=== PATIENT | male | born 1965 | race Caucasian/White ===

== ENCOUNTER 2019-02-06 19:02 | Inpatient (IN) | payer SELFPAY ==
[2019-02-06] MEDS ORDERED: Lidocaine 1% w/Epinephrine 1:100K 20 ML VIAL ONE (19:20)
[2019-02-06] MEDS ORDERED: Adacel (T-DAP) 0.5 ML SYRINGE ONE (19:25)
[2019-02-06 19:29] LABS: #Eosinphils 0.1 thou/uL (0.0-0.7); #Lymphocytes 2.9 thou/uL (1.20-3.40); #Monocytes 0.5 thou/uL (0.11-0.59); #Neutrophils 5.8 thou/uL (1.40-6.50); %Basophils 0.5 % (0.0-1.0); %Eosinophils 0.6 % (0.0-10.0); %Lymphocytes 31.4 % (21.0-51.0); %Neutrophils 62.5 % (42.0-75.0); Hemoglobin 12.2 g/dL (14.0-18.0); Mean Corpuscular HGB CONC 34.2 g/dL (32.0-36.0); Mean Corpuscular Hemoglobin 31.7 pg (27.0-31.0); Mean Corpuscular Volume 92.6 fL (78.0-98.0); Platelet Count 238 thou/uL (130-400); RBC Distribution Width 11.6 % (11.5-14.5); Red Blood Cell (RBC) Count 3.84 mill/uL (4.70-6.10); White Blood Cell (WBC) Count 9.2 thou/uL (4.8-10.8)
[2019-02-06 19:35] LABS: INR-International Normal Ratio 1.1; Prothrombin Time 13.7 SEC (12.0-14.7)
[2019-02-06] MEDS ORDERED: Calcium Chloride 1 GM/10 ML Abboject SYRINGE ONE (19:35)
[2019-02-06 19:36] LABS: PTT 22.4 SEC (22.9-36.1)
[2019-02-06] MEDS ORDERED: Atropine Sulfate 1 mg/10 ml Syringe ONE (19:45)
[2019-02-06] MEDS ORDERED: Norepinephrine 8 MG/0.9% NS 250 ML ONE (19:45)
[2019-02-06 19:52] LABS: ALT (SGPT) 10 U/L (8-55); AST (SGOT) 14 U/L (5-34); Albumin 3.2 g/dL (3.5-5.0); Alkaline Phosphatase 55 U/L (40-110); Anion Gap 13 mmol/L (10-20); BUN (Urea Nitrogen) 20 mg/dL (8.4-25.7); Bilirubin, Total 0.6 mg/dL (0.2-1.2); Calc. Creatinine Clearance 0 mL/min (70-130); Calcium 8.2 mg/dL (7.8-10.44); Carbon Dioxide 21 mmol/L (22-29); Chloride 105 mmol/L (98-107); Estimated GFR-MDRD 58; Globulin 2.6 g/dL (2.4-3.5); Glucose 99 mg/dL (70-105); Potassium 4.1 mmol/L (3.5-5.1); Protein, Total 5.8 g/dL (6.0-8.3); Sodium 135 mmol/L (136-145)
[2019-02-06 19:52] LABS: Acetaminophen Less than 6.0 mcg/mL (10.0-30.0); Alcohol Less than 10 mg/dL (Less than 10); Salicylate Less than 8.0 mg/dL (15.0-30.0)
[2019-02-06 20:36] LABS: Bilirubin Negative (Negative); Blood, Urine Negative (Negative); Clarity Clear (Clear); Glucose, Urine (Dipstick) Normal (Negative); Leukocyte Negative Leu/uL (Negative); Nitrite Negative (Negative); Protein, Urine (Dipstick) Negative (Neg-Trace); Urobilinogen Normal mg/dL (Less than 2)
[2019-02-06 20:45] LABS: Amphetamine Not Detected (NotDetected); Cocaine Metabolite Screen Not Detected (NotDetected); Medtox Reader # READER 1; Methamphetamine Not Detected (NotDetected); Opiate Screen Detected (NotDetected); Phencyclidine (PCP) Not Detected (NotDetected); THC/Cannabinoid Screen Detected (NotDetected)
[2019-02-06] MEDS ORDERED: HUMULIN R IVPB SCH (20:45)
[2019-02-06] MEDS ORDERED: SODIUM CHLORIDE 0.9% IVPB SCH (20:45)
[2019-02-06 20:46] LABS: Barbiturates Screen Not Detected (NotDetected); Benzodiazepine Screen Detected (NotDetected); Medtox Control Line Valid? VALID (VALID); Methadone Not Detected (NotDetected); Oxycodone Screen Not Detected (NotDetected); Tricyclic Screen Detected (NotDetected)
[2019-02-06] MEDS ORDERED: STERILE WATER IV SCH (21:00)
[2019-02-06] MEDS ORDERED: DEXTROSE IV SCH (21:00)
[2019-02-06] MEDS ORDERED: WATER IV SCH (21:00)
--- NOTE | 2019-02-06 21:26 | RAD ---
2 views left forearm: 02/06/2019 COMPARISON: None HISTORY: Injury FINDINGS: Detailed assessment is limited as the patient is imaged in a cast. Cutaneous colleen are no raj along the volar aspect of the forearm. No acute fracture or dislocation. IMPRESSION: No displaced fracture or dislocation seen.
[2019-02-06] MEDS ORDERED: Fentanyl 100 MCG/2 ML VIAL ONE (22:21)
--- NOTE | 2019-02-06 22:41 | RAD ---
SUPINE FRONTAL CHEST RADIOGRAPH: 02/06/19 COMPARISON: None. HISTORY: Central line placement. FINDINGS: Supine imaging limits assessment for pneumothorax and pleural fluid. No focal consolidation. There is a right sided vascular catheter with distal tip overlying the expected location of the SVC. IMPRESSION: Portable frontal chest radiograph as above. POS: MARILYN
[2019-02-07] MEDS ORDERED: Norepinephrine 8 MG/0.9% NS 250 ML IVPB SCH (00:15)
[2019-02-07 00:34] VITALS: BMI 31.5
[2019-02-07] MEDS: Dextrose 5 %-0.45 % NaCl 1,000 ML IV SCH ×2 (01:20→09:10)
--- NOTE | 2019-02-07 02:24 | PDOC.FPRHP ---
- History of Present Illness Chief Complaint: Suicide Attempt History of Present Illness: Pt is a 53 yo male with PMH significant for HTN, depression who presents to the emergency department with an attempted suicide. He initially took multiple tablets of lisinopril 30 mg and states he also took metoprolol. He was hypotensive on admission to the emergency department. On arrival he also had a L forearm laceration including tendon. Laceration was repaired in the emergency and Dr. Vera was consulted. He was initally given atropine, calcium and glucagon with good response in BP' s. ED consulted poison control who recommended high dose levophed, 1 mg/kg at 20-30 mcg/min and insulin 1-10 U/kg/hr with euglycemia protocol with accuchecks and BMP q15 min if his pressures began to drop again. Central line was placed. Did not take extensive history as to circumstances surrounding attempted suicide. He does have history of recently moving to the area from [place] to help take care of his mother. Difficult to obtain information surrounding event. ED Course: as above - Allergies/Adverse Reactions Allergies Allergy/AdvReac Type Severity Reaction Status Date / Time No Known Allergies Allergy Unverified 02/06/19 20:12 - Home Medications Medication Instructions Recorded Confirmed Type ALPRAZolam [Xanax] 2 mg PO BID 02/07/19 02/07/19 History Amlodipine [Norvasc] 10 mg PO DAILY 02/07/19 02/07/19 History Lisinopril 40 mg PO DAILY 02/07/19 02/07/19 History Omeprazole 10 mg PO DAILY 02/07/19 02/07/19 History QUEtiapine Fumarate [SEROquel] 100 mg PO HS 02/07/19 02/07/19 History Zolpidem Tartrate [Ambien] 10 mg PO HS 02/07/19 02/07/19 History - History PMHx: HTN, Depression PSHx: did not obtain FHx: did not obtain Social: recently to the area from [place] to take care of mother - Review of Systems General: denies: fever/chills, weight/appetite/sleep changes Respiratory: denies: cough, congestion Cardiovascular: denies: chest pain, palpitation Gastrointestinal: denies: nausea, vomiting, diarrhea Skin: denies: rashes, lesions Psychological: reports: depression. denies: anxiety - Vital signs BP: 125/84 HR: RR: 73 Tmax: 98.2 Pox: 96% on RA Wt: 97.5 kg - Physical Exam Constitutional: NAD, awake, alert and oriented Heart: RRR, normal S1/S2 Lungs: CTAB, no respiratory distress, no wheezing Abdomen: soft, non-tender, bowel sounds present Musculoskeletal: ROM grossly normal -Musculoskeletal: L forearm wrapped Neurological: no focal deficit, CN II-XII intact Skin: no rash/lesions, capillary refill <2 seconds -Psychiatric: Poor insight and judgment FMR H&P: Results - Labs Result Diagrams: 02/07/19 06:27 02/07/19 06:27 Lab results: WBC 9.2 thou/uL (4.8-10.8) 02/06/19 19:13 Hgb 12.2 g/dL (14.0-18.0) L 02/06/19 19:13 Hct 35.5 % (42.0-52.0) L 02/06/19 19:13 MCV 92.6 fL (78.0-98.0) 02/06/19 19:13 Plt Count 238 thou/uL (130-400) 02/06/19 19:13 Neutrophils % 62.5 % (42.0-75.0) 02/06/19 19:13 Sodium 135 mmol/L (136-145) L 02/06/19 19:13 Potassium 4.1 mmol/L (3.5-5.1) 02/06/19 19:13 Chloride 105 mmol/L (98-107) 02/06/19 19:13 Carbon Dioxide 21 mmol/L (22-29) L 02/06/19 19:13 BUN 20 mg/dL (8.4-25.7) 02/06/19 19:13 Creatinine 1.30 mg/dL (0.7-1.3) 02/06/19 19:13 Glucose 99 mg/dL (70-105) 02/06/19 19:13 Lactic Acid 1.7 mmol/L (0.5-2.2) 02/06/19 19:19 Calcium 8.2 mg/dL (7.8-10.44) 02/06/19 19:13 Total Bilirubin 0.6 mg/dL (0.2-1.2) 02/06/19 19:13 AST 14 U/L (5-34) 02/06/19 19:13 ALT 10 U/L (8-55) 02/06/19 19:13 Alkaline Phosphatase 55 U/L (40-110) 02/06/19 19:13 Serum Total Protein 5.8 g/dL (6.0-8.3) L 02/06/19 19:13 Albumin 3.2 g/dL (3.5-5.0) L 02/06/19 19:13 Urine Ketones Negative mg/dL (Negative) 02/06/19 20:22 Urine Blood Negative (Negative) 02/06/19 20:22 Urine Nitrite Negative (Negative) 02/06/19 20:22 Ur Leukocyte Esterase Negative Dex/uL (Negative) 02/06/19 20:22 FMR H&P: A/P - Problem List (1) Suicide and self-inflicted injury Current Visit: Yes Status: Acute Code(s): X83.8XXA - INTENTIONAL SELF-HARM BY OTHER SPECIFIED MEANS, INIT ENCNTR (2) Hypertension Current Visit: Yes Status: Acute Code(s): I10 - ESSENTIAL (PRIMARY) HYPERTENSION (3) Depression Current Visit: Yes Status: Acute Code(s): F32.9 - MAJOR DEPRESSIVE DISORDER , SINGLE EPISODE, UNSPECIFIED - Plan Pt is a 53 yo male here for a suicide attempt # Suicide Attempt 2/2 Lisinopril Overdose and L arm Laceration - Given atropine, calcium, glucagon. Poison control recommended high dose levophed, 1 mg/kg at 20-30 mcg/min and insulin 1-10 U/kg/hr with euglycemia protocol with accuchecks and BMP q15 min if pressures begin to drop. - Dr. Vera, ortho, consulted from ED and will see pt tomorrow for laceration involving tendon - Case management consulted for SI attempt - Fluids to help flush kidneys, medications - admit to CCU for close BP watch - TDaP, Cefazolin given in ED # HTN - hold home meds # Drug Abuse Positive drug screen Fluids: NS 140 mls/hr Diet: NPO for surgery VTE: Lovenox Code: Full Dispo: > 2 day stay FMR H&P: Upper Level - Plan Date/Time: 02/07/19 0224 Cheng Nelson MD, have evaluated this patient and agree with findings/plan as outlined by hr internship resident. Pertinent changes/additions are listed here. Alfonso Thomas is a 53 year old M with a PMH of HTN, DAX, MDD who was brought to the ED after suicide attempt. Pt states that his mother broke his heart over [place] and he developed suicidal thoughts. 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 EMS found 9 cm laceration to left forearm with tendon involvement. He was given 1 L NS and 100 mcg fentanyl in route to ED. In the ED he was drowsy, hypotensive in the 80s and bradycardic as low as 47. He was given atropine and calcium in the ED which improved HR and BP. Poison control was called and recommended close monitoring in ICU and gave recommendations for treatment of hypotension and bradycardia. Recommended high dose levophed, 1 mg/kg at 20-30 mcg/min and insulin 1-10 U/kg/hr with euglycemia protocol with accuchecks and BMP q15 min. Since getting atropine and calcium as well as IVFs in ED, pts BP and HR remained stable, not requiring pressors or insulin. Dr. Vera was consulted from the ED and agreed to see pt in AM. R IJ placed in ED along and lac was repaired. Tdap vaccine given. Labs were sig for UDS positive for THC, Opiates, TCAs and Benzos. UA neg, Serum drug screen neg. Lactic acid 1.7. TSH 0.5. Patient admitted to CCU for lisinopril OD. Following Poison control recs with close monitoring of BP and HR. Will continue fentanyl for pain. Dr. Vera consulted in ED, appreciate recs. Anticipate hospital stay >48 hrs and will get MHMR involved once patient is stable. Please see hr internship note above for full H&P, which I have reviewed and agree with. Addendum - Attending - Attending Attestation Date/Time: 02/06/19 2200 I personally evaluated the patient and discussed the management with Dr. Mcdaniel /Johnnie. I agree with the History, Examination, Assessment and Plan documented above with any addition or exceptions noted below. See my dictated H&P. Document #[id number]. Patient seen at approximately 2200 on day of admission.
[2019-02-07] MEDS: Fentanyl 100 MCG/2 ML VIAL SLOW IVP PRN ×9 (02:47→23:03)
[2019-02-07] MEDS: Sodium Chloride 0.9% 1,000 ML IV SCH ×4 (06:14→20:48)
[2019-02-07 06:36] LABS: #Eosinphils 0.1 thou/uL (0.0-0.7); #Lymphocytes 1.5 thou/uL (1.20-3.40); #Monocytes 0.5 thou/uL (0.11-0.59); #Neutrophils 7.7 thou/uL (1.40-6.50); %Basophils 0.3 % (0.0-1.0); %Eosinophils 0.6 % (0.0-10.0); %Lymphocytes 15.6 % (21.0-51.0); %Monocytes 4.6 % (0.0-10.0); %Neutrophils 78.9 % (42.0-75.0); Hemoglobin 13.2 g/dL (14.0-18.0); Mean Corpuscular HGB CONC 34.1 g/dL (32.0-36.0); Mean Corpuscular Hemoglobin 30.9 pg (27.0-31.0); Mean Corpuscular Volume 90.8 fL (78.0-98.0); Mean Platelet Volume 6.9 fL (7.4-10.4); Platelet Count 215 thou/uL (130-400); RBC Distribution Width 12.2 % (11.5-14.5); Red Blood Cell (RBC) Count 4.27 mill/uL (4.70-6.10); White Blood Cell (WBC) Count 9.8 thou/uL (4.8-10.8)
[2019-02-07 06:56] LABS: Anion Gap 9 mmol/L (10-20); BUN (Urea Nitrogen) 14 mg/dL (8.4-25.7); Calc. Creatinine Clearance 112 mL/min (70-130); Calcium 8.4 mg/dL (7.8-10.44); Carbon Dioxide 24 mmol/L (22-29); Chloride 107 mmol/L (98-107); Estimated GFR-MDRD 72; Glucose 122 mg/dL (70-105); Potassium 3.9 mmol/L (3.5-5.1); Sodium 136 mmol/L (136-145)
[2019-02-07] MEDS: HYDROcodone/Acetaminophen 5/325 mg Tablet PO PRN ×3 (07:45→20:20)
--- NOTE | 2019-02-07 11:44 | PDOC.FM ---
- Subjective Subjective: 53 yo M admitted over night for suicide attempt by overdose on ACEI and metoprolol. Since admission he states that he feels well and is no longer suicidal. He has no hx of previous attempts or depression. He complains of L arm pain from his self inflicted laceration. Since admission he has no new complaints. No concerns from nursing. He denies all other symptom on ROS> - Objective MAR Reviewed: Yes Vital Signs & Weight: Vital Signs (12 hours) Temp Pulse Ox 02/07/19 08:00 98.7 F 93 L 02/07/19 04:00 98.5 F 02/07/19 01:00 98.4 F 02/07/19 00:30 97 Weight Admit Weight 99.7 kg Weight 99.7 kg Most Recent Monitor Data Heart Rate from ECG 89 NIBP 146/105 NIBP BP-Mean 118 Respiration from ECG 20 SpO2 96 I&O: 02/06/19 02/07/19 02/08/19 06:59 06:59 06:59 Intake Total 779 50 Output Total 1460 1055 Balance -681 -1005 Result Diagrams: 02/07/19 06:27 02/07/19 06:27 Phys Exam - Physical Examination Constitutional: NAD HEENT: moist MMs Respiratory: clear to auscultation bilateral Cardiovascular: RRR, no significant murmur Gastrointestinal: no distention, positive bowel sounds Musculoskeletal: no edema L forearm dressed. Fingers are neurovascularly intact Neurological: non-focal, moves all 4 limbs Psychiatric: A&O x 3 Deviation from normal: No curent SI Dx/Plan (1) Suicide attempt by beta isidro overdose Code(s): T44.7X2A - POISONING BY BETA-ADRENOCPT ANTAGONISTS, SELF-HARM, INIT Status: Acute (2) Depression Code(s): F32.9 - MAJOR DEPRESSIVE DISORDER, SINGLE EPISODE, UNSPECIFIED Status : Acute (3) Hypertension Code(s): I10 - ESSENTIAL (PRIMARY) HYPERTENSION Status: Acute (4) Suicide and self-inflicted injury Code(s): X83.8XXA - INTENTIONAL SELF-HARM BY OTHER SPECIFIED MEANS, INIT ENCNTR Status: Acute - Plan Plan: 1. Beta isidro overdose - BP is stable, has never required pressers. - Normal HR - will follow up with poison control for total obs duration, would expect transfer to [facility] from ICU later today. 2. Suicide attempt - not currently suicidal. When medically cleared will call [facility] for evaluation 3. HTN - currently holding all meds 4. Arm laceration - clean and dressed. No sign of infection. Ortho consulted, they do not plan to operate at this time. Dispo Pt is stable and doing well. Would expect dc in the next 1-2 days.
--- NOTE | 2019-02-07 11:59 | CON ---
DATE OF CONSULTATION: 02/07/2019 CONSULTING PHYSICIAN: [facility]. REASON FOR CONSULTATION: ICU management. HISTORY OF PRESENT ILLNESS: This is a 53-year-old male, who apparently took multiple tablets of lisinopril and metoprolol. He presented to the ER, slightly hypotensive with heart rate in the 40s to 50s. This quickly reversed after being given atropine, calcium, and glucagon. He did not require initiation of Levophed. He received several liters of IV fluids. His blood pressure and pulse are back to normal and he has no complaints. Apparently, he attempted to cut his arm and now has a dressing over the left wrist area and is pending Orthopedic evaluation. PAST MEDICAL HISTORY: 1. Chronic insomnia. 2. Depression. 3. Hypertension. PAST SURGICAL HISTORY: Negative. FAMILY MEDICAL HISTORY: Unremarkable. SOCIAL HISTORY: Does not nonsmoker. Does not drink alcohol. He does use CBD oral. MEDICATIONS: Prior to admission; 1. Xanax. 2. Norvasc. 3. Lisinopril. 4. Omeprazole. 5. Seroquel. 6. Ambien. Apparently, the metoprolol belonged to either his mother or his grandmother. ALLERGIES: NONE. REVIEW OF SYSTEMS: Twelve-point review of systems is otherwise negative. PHYSICAL EXAMINATION: VITAL SIGNS: Temperature 98.7, pulse 80, blood pressure 140/89, respiratory rate 12, and O2 saturation 93%. He is awake and alert, in no distress. HEENT: Unremarkable. NECK: No adenopathy or JVD. LUNGS: Clear. CARDIAC: S1 and S2 regular without murmur. ABDOMEN: Soft and nontender to palpation. EXTREMITIES: No clubbing or cyanosis. He has a bandage over his left wrist. LABORATORY DATA: Sodium 136, potassium 3.9, chloride 107, CO2 of 24, BUN 14, creatinine 1.1, and glucose 122. INR 1.1. White blood cell count 9.8, hematocrit 38.7, and platelet count 215. Sodium 136, potassium 3.9, BUN 14, creatinine 1.1, and glucose 122. ASSESSMENT: 1. Transient hypotension and bradycardia from ingestion of beta-blockers. I doubt he ingested any significant quantity of lisinopril given what we are seeing on his labs. 2. Attempted suicide with injury to his left arm. PLAN: 1. He will be evaluated by Orthopedics. 2. I think he is out of the young from the antihypertensive overdose and can likely be moved to the floor as long as he has a sitter. No further recommendations. Pulmonary will sign off. Job ID: [id number]
[2019-02-07] MEDS ORDERED: Melatonin 3 MG TAB PO PRN (20:50)
--- NOTE | 2019-02-07 21:46 | CON ---
DATE OF CONSULTATION: 02/07/2019 HISTORY OF PRESENT ILLNESS: The is a 53-year-old right-handed male who reportedly has history of depression and reportedly took many lisinopril and metoprolol, and then took a razor blade and performed a longitudinal laceration over the volar aspect of the left forearm. I was able to see the picture of the forearm and it appeared to be superficial. The palmaris longus tendon was easily visible, but the underlying muscle did not appear to be damaged nor any of the tendons in the wrist. The patient reports no numbness in his left hand and he is able to flex and extend his hand. The emergency room doctor this morning, cleaned up the wound and did a primary closure. PHYSICAL EXAMINATION: The patient is in a splint. The wound has been well approximated. He has mild swelling in the forearm and hand. The patient is able to flex and extend all of the digits in his left hand. He has good adduction and abduction. He has normal sensation in the entire left hand. Good peripheral pulses. IMPRESSION: Superficial longitudinal laceration on the volar aspect of the left forearm. PLAN: No additional surgery is needed. The emergency room doctor did an excellent job on cleaning and repairing the laceration. The laceration just needs to heal and the colleen should be removed in approximately 10 days. No further surgery is needed on his left forearm at this time. Job ID: [id number]
[2019-02-08] MEDS: Fentanyl 100 MCG/2 ML VIAL SLOW IVP PRN ×10 (01:05→22:37)
[2019-02-08] MEDS: Sodium Chloride 0.9% 1,000 ML IV SCH ×6 (02:00→20:46)
[2019-02-08] MEDS: HYDROcodone/Acetaminophen 5/325 mg Tablet PO PRN ×3 (02:28→16:58)
[2019-02-08 06:18] LABS: #Eosinphils 0.1 thou/uL (0.0-0.7); #Lymphocytes 2.2 thou/uL (1.20-3.40); #Monocytes 0.5 thou/uL (0.11-0.59); #Neutrophils 3.6 thou/uL (1.40-6.50); %Basophils 0.5 % (0.0-1.0); %Eosinophils 1.2 % (0.0-10.0); %Monocytes 7.7 % (0.0-10.0); %Neutrophils 56.6 % (42.0-75.0); Hemoglobin 12.6 g/dL (14.0-18.0); Mean Corpuscular HGB CONC 33.8 g/dL (32.0-36.0); Mean Corpuscular Hemoglobin 31.8 pg (27.0-31.0); Mean Corpuscular Volume 94.1 fL (78.0-98.0); Mean Platelet Volume 7.4 fL (7.4-10.4); Platelet Count 212 thou/uL (130-400); Red Blood Cell (RBC) Count 3.97 mill/uL (4.70-6.10); White Blood Cell (WBC) Count 6.3 thou/uL (4.8-10.8)
--- NOTE | 2019-02-08 06:18 | PDOC.FM ---
- Subjective Subjective: BP's increasing. Pt states he is not sleeping well. Denies current suicidal thoughts or ideations. - Objective MAR Reviewed: Yes Vital Signs & Weight: Vital Signs (12 hours) Temp Pulse Resp BP Pulse Ox 02/08/19 04:12 98.4 F 76 20 157/90 H 93 L 02/08/19 00:21 98.7 F 80 16 163/91 H 96 02/07/19 20:00 96 02/07/19 19:02 99.2 F 80 18 159/95 H 96 Weight Admit Weight 99.7 kg Weight 99.7 kg Most Recent Monitor Data Heart Rate from ECG 81 NIBP 135/88 NIBP BP-Mean 103 Respiration from ECG 9 SpO2 96 I&O: 02/06/19 02/07/19 02/08/19 06:59 06:59 06:59 Intake Total 779 2079 Output Total 1460 2180 Balance -681 -101 Result Diagrams: 02/08/19 05:53 02/08/19 05:53 Phys Exam - Physical Examination Constitutional: NAD HEENT: moist MMs, sclera anicteric Neck: no JVD, full ROM Respiratory: no wheezing, no rales, no rhonchi, clear to auscultation bilateral Cardiovascular: RRR, no significant murmur, no rub Gastrointestinal: soft, non-tender, no distention, positive bowel sounds Musculoskeletal: no edema, pulses present Left forearm laceration, dressing clean and dry. neurovasculally intact. Neurological: non-focal, moves all 4 limbs Psychiatric: A&O x 3 Skin: no rash, normal turgor, cap refill <2 seconds Dx/Plan (1) Suicide attempt by beta isidro overdose Code(s): T44.7X2A - POISONING BY BETA-ADRENOCPT ANTAGONISTS, SELF-HARM, INIT Status: Acute (2) Suicide and self-inflicted injury Code(s): X83.8XXA - INTENTIONAL SELF-HARM BY OTHER SPECIFIED MEANS, INIT ENCNTR Status: Acute (3) Depression Code(s): F32.9 - MAJOR DEPRESSIVE DISORDER, SINGLE EPISODE, UNSPECIFIED Status : Chronic (4) Hypertension Code(s): I10 - ESSENTIAL (PRIMARY) HYPERTENSION Status: Chronic - Plan Plan: 1. Beta isidro overdose - BP is stable, has never required pressers. - Normal HR - will follow up with poison control for total obs duration, transfer to medical. - Pt's never became hypotensive. Pressures are elevated. restarted home BP meds 02/08. 2. Suicide attempt - not currently suicidal. Cleared Medically 02/07. - [facility] recommending pt be placed in inpatient Psych facility. Awaiting bed placement. 3. HTN - Restarted home BP medication 02/08. - Norvasc and lisinopril. - vitals Q4H. 4. Arm laceration - clean and dressed. No sign of infection. Ortho consulted, they do not plan to operate at this time. Dispo Pt is stable and doing well. D/C to inpatient psych facility.
[2019-02-08 06:33] LABS: Anion Gap 11 mmol/L (10-20); BUN (Urea Nitrogen) 7 mg/dL (8.4-25.7); Calc. Creatinine Clearance 135 mL/min (70-130); Calcium 8.1 mg/dL (7.8-10.44); Carbon Dioxide 25 mmol/L (22-29); Chloride 109 mmol/L (98-107); Estimated GFR-MDRD 89; Glucose 104 mg/dL (70-105); Potassium 3.7 mmol/L (3.5-5.1); Sodium 141 mmol/L (136-145)
[2019-02-08] MEDS: Amlodipine 10 MG TAB PO SCH (08:13)
[2019-02-08] MEDS: Lisinopril 20 MG TAB PO SCH (08:16)
[2019-02-08] MEDS: Enoxaparin Sodium 40 MG/0.4 ML SYRINGE SC SCH (08:16)
[2019-02-08] MEDS: hydrOXYzine 25 MG TAB PO PRN (10:28)
[2019-02-08] MEDS ORDERED: Pepto Bismol Chew TAB PO SCH (13:00)
[2019-02-08] MEDS ORDERED: Oxazepam 10 MG CAP PO SCH (13:00)
[2019-02-08] MEDS: Oxazepam 10 MG CAP PO SCH (20:47)
[2019-02-09] MEDS: HYDROcodone/Acetaminophen 5/325 mg Tablet PO PRN ×4 (01:11→21:54)
[2019-02-09] MEDS: Fentanyl 100 MCG/2 ML VIAL SLOW IVP PRN ×7 (02:34→20:54)
[2019-02-09] MEDS: Sodium Chloride 0.9% 1,000 ML IV SCH ×4 (04:43→10:05)
[2019-02-09 05:51] LABS: #Basophils 0.1 thou/uL (0.0-0.2); #Eosinphils 0.1 thou/uL (0.0-0.7); #Lymphocytes 2.2 thou/uL (1.20-3.40); #Monocytes 0.4 thou/uL (0.11-0.59); #Neutrophils 3.2 thou/uL (1.40-6.50); %Basophils 0.8 % (0.0-1.0); %Lymphocytes 36.4 % (21.0-51.0); %Monocytes 6.9 % (0.0-10.0); %Neutrophils 53.9 % (42.0-75.0); Hemoglobin 10.7 g/dL (14.0-18.0); Mean Corpuscular Hemoglobin 31.3 pg (27.0-31.0); Mean Corpuscular Volume 92.1 fL (78.0-98.0); Platelet Count 212 thou/uL (130-400); RBC Distribution Width 11.6 % (11.5-14.5)
[2019-02-09 06:09] LABS: Anion Gap 8 mmol/L (10-20); BUN (Urea Nitrogen) 7 mg/dL (8.4-25.7); Calc. Creatinine Clearance 152 mL/min (70-130); Calcium 7.6 mg/dL (7.8-10.44); Carbon Dioxide 27 mmol/L (22-29); Chloride 111 mmol/L (98-107); Estimated GFR-MDRD Greater than 90; Glucose 96 mg/dL (70-105); Potassium 3.5 mmol/L (3.5-5.1); Sodium 142 mmol/L (136-145)
--- NOTE | 2019-02-09 06:40 | PDOC.FM ---
- Subjective Subjective: Pt asleep upon entry to room. Overnight sitter states he had been asleep finally for about 2.5 hours. Pt had been having trouble falling asleep. Awaiting inpatient psych bed. BP's improved since restarting medications. - Objective MAR Reviewed: Yes Vital Signs & Weight: Vital Signs (12 hours) Temp Pulse Resp BP Pulse Ox 02/09/19 01:00 98.2 F 77 20 154/97 H 96 02/08/19 20:00 95 02/08/19 19:30 98.5 F 77 18 149/89 H 95 Weight Admit Weight 99.7 kg Weight 99.7 kg Most Recent Monitor Data Heart Rate from ECG 81 NIBP 135/88 NIBP BP-Mean 103 Respiration from ECG 9 SpO2 96 I&O: 02/07/19 02/08/19 02/09/19 06:59 06:59 06:59 Intake Total 779 2079 1900 Output Total 1460 2180 Balance -681 -101 1900 Result Diagrams: 02/09/19 05:21 02/09/19 05:21 Phys Exam - Physical Examination Constitutional: NAD Respiratory: no wheezing, no rales, no rhonchi, clear to auscultation bilateral Cardiovascular: RRR, no significant murmur, no rub Gastrointestinal: soft, no distention, positive bowel sounds Musculoskeletal: no edema, pulses present Skin: no rash, normal turgor, cap refill <2 seconds Dx/Plan (1) Suicide attempt by beta isidro overdose Code(s): T44.7X2A - POISONING BY BETA-ADRENOCPT ANTAGONISTS, SELF-HARM, INIT Status: Acute (2) Suicide and self-inflicted injury Code(s): X83.8XXA - INTENTIONAL SELF-HARM BY OTHER SPECIFIED MEANS, INIT ENCNTR Status: Acute (3) Depression Code(s): F32.9 - MAJOR DEPRESSIVE DISORDER, SINGLE EPISODE, UNSPECIFIED Status : Chronic (4) Hypertension Code(s): I10 - ESSENTIAL (PRIMARY) HYPERTENSION Status: Chronic - Plan Plan: 1. Beta isidro overdose - BP is stable, has never required pressers. - Normal HR - will follow up with poison control for total obs duration, transfer to medical. - Pt's never became hypotensive. Pressures are elevated. restarted home BP meds 02/08. 2. Suicide attempt - not currently suicidal. Cleared Medically 02/07. - [facility] recommending pt be placed in inpatient Psych facility. Awaiting bed placement. 3. HTN - Restarted home BP medication 02/08. - Norvasc and lisinopril. - vitals Q4H. 4. Arm laceration - clean and dressed. No sign of infection. Ortho consulted, they do not plan to operate at this time. Dispo Pt is stable and doing well. D/C to inpatient psych facility.
[2019-02-09 09:28] LABS: Bicarbonate (HCO3v) 5.7 mmol/L (22.0-28.0); CO2 Tension (PvCO2) 13.3 mmHg (40.0-50.0)
[2019-02-09 09:29] LABS: Base Excess-Venous -20.3 mmol/L (-2.0 to 3.0); Calcium, Ionized 0.34 mmol/L (See Comments:); Chloride 129 mmol/L (98-107); Sodium 154 mmol/L (138-145); T. Carbon Dioxide 6.1 mmol/L (22.0-28.0); vO2 Saturation-calc 99.5 % (60.0-85.0)
[2019-02-09] MEDS: Amlodipine 10 MG TAB PO SCH (09:58)
[2019-02-09] MEDS: Lisinopril 20 MG TAB PO SCH (09:59)
[2019-02-09] MEDS: Enoxaparin Sodium 40 MG/0.4 ML SYRINGE SC SCH (09:59)
[2019-02-09] MEDS: Oxazepam 10 MG CAP PO SCH ×2 (10:00→20:52)
--- NOTE | 2019-02-09 11:54 | PRG ---
DATE OF SERVICE: I have discussed the case and read the note of Dr. Debbie Flores and agree with her assessment and plan. Mr. Thomas is a 53-year-old man, who presented to the ER after an attempted suicide. He took multiple tablets of lisinopril and metoprolol. He also had a large laceration of his left forearm that was self-inflicted. He was initially admitted to the MICU, but never became hypotensive. He was subsequently transferred to the regular floor and [facility] has been consulted. They have recommended inpatient psychiatric care in [place] and this is currently being arranged. Clinically, the patient is now stable. His labs; white count was 9200, hemoglobin 12.2, hematocrit 35.5. Chemistries: Sodium 135; potassium 4.1; chloride 105; bicarb initially 21, elizabeth to 25; BUN 20; creatinine 1.30. As stated, clinically Mr. Thomas is now stable and we are awaiting movement to [facility]. Job ID: [id number]
[2019-02-09] MEDS: hydrOXYzine 25 MG TAB PO PRN (21:54)
[2019-02-10] MEDS: Fentanyl 100 MCG/2 ML VIAL SLOW IVP PRN ×3 (00:09→08:56)
[2019-02-10] MEDS: HYDROcodone/Acetaminophen 5/325 mg Tablet PO PRN ×3 (04:28→20:34)
[2019-02-10 05:49] LABS: #Basophils 0.1 thou/uL (0.0-0.2); #Eosinphils 0.1 thou/uL (0.0-0.7); #Lymphocytes 3.4 thou/uL (1.20-3.40); #Monocytes 0.9 thou/uL (0.11-0.59); #Neutrophils 5.5 thou/uL (1.40-6.50); %Eosinophils 1.1 % (0.0-10.0); %Lymphocytes 33.9 % (21.0-51.0); %Monocytes 8.6 % (0.0-10.0); %Neutrophils 55.4 % (42.0-75.0); Hemoglobin 13.2 g/dL (14.0-18.0); Mean Corpuscular HGB CONC 31.8 g/dL (32.0-36.0); Mean Corpuscular Hemoglobin 29.5 pg (27.0-31.0); Mean Corpuscular Volume 92.6 fL (78.0-98.0); Mean Platelet Volume 6.8 fL (7.4-10.4); Platelet Count 281 thou/uL (130-400); RBC Distribution Width 11.9 % (11.5-14.5); Red Blood Cell (RBC) Count 4.47 mill/uL (4.70-6.10)
[2019-02-10 05:53] LABS: Anion Gap 10 mmol/L (10-20); BUN (Urea Nitrogen) 10 mg/dL (8.4-25.7); Calc. Creatinine Clearance 125 mL/min (70-130); Calcium 8.7 mg/dL (7.8-10.44); Carbon Dioxide 29 mmol/L (22-29); Chloride 106 mmol/L (98-107); Estimated GFR-MDRD 82; Glucose 101 mg/dL (70-105); Potassium 3.8 mmol/L (3.5-5.1); Sodium 141 mmol/L (136-145)
--- NOTE | 2019-02-10 06:38 | PDOC.FM ---
- Subjective Subjective: Pt c/o pain in LUE over his site from incision to forearm. Pt awaiting bed for inpatient psych facility. No acute overnight events. States he has trouble falling asleep. - Objective MAR Reviewed: Yes Vital Signs & Weight: Vital Signs (12 hours) Temp Pulse Resp BP BP Pulse Ox 02/10/19 04:00 97.6 F 71 18 157/95 H 157/91 H 98 02/09/19 18:57 98.2 F 73 18 137/97 H 96 Weight Admit Weight 99.7 kg Weight 99.7 kg Most Recent Monitor Data Heart Rate from ECG 81 NIBP 135/88 NIBP BP-Mean 103 Respiration from ECG 9 SpO2 96 I&O: 02/08/19 02/09/19 02/10/19 06:59 06:59 06:59 Intake Total 2079 1900 1400 Output Total 2180 900 Balance -101 1900 500 Result Diagrams: 02/10/19 05:25 02/10/19 05:25 Phys Exam - Physical Examination Constitutional: NAD HEENT: moist MMs, sclera anicteric Neck: no JVD, full ROM Respiratory: no wheezing, no rales, no rhonchi, clear to auscultation bilateral Cardiovascular: RRR, no significant murmur, no rub Gastrointestinal: soft, non-tender, no distention, positive bowel sounds Musculoskeletal: no edema, pulses present LUE forearm bandage clean and dry. neurovascularlly intact LUE. Neurological: non-focal, normal sensation, moves all 4 limbs Psychiatric: A&O x 3 Skin: no rash, normal turgor, cap refill <2 seconds Dx/Plan (1) Suicide attempt by beta isidro overdose Code(s): T44.7X2A - POISONING BY BETA-ADRENOCPT ANTAGONISTS, SELF-HARM, INIT Status: Acute (2) Suicide and self-inflicted injury Code(s): X83.8XXA - INTENTIONAL SELF-HARM BY OTHER SPECIFIED MEANS, INIT ENCNTR Status: Acute (3) Depression Code(s): F32.9 - MAJOR DEPRESSIVE DISORDER, SINGLE EPISODE, UNSPECIFIED Status : Chronic (4) Hypertension Code(s): I10 - ESSENTIAL (PRIMARY) HYPERTENSION Status: Chronic - Plan Plan: 1. Beta isidro overdose - BP is stable, has never required pressers. - Normal HR - will follow up with poison control for total obs duration, transfer to medical. - Pt's never became hypotensive. Pressures are elevated. restarted home BP meds 02/08. 2. Suicide attempt - not currently suicidal. Cleared Medically 02/07. - [facility] recommending pt be placed in inpatient Psych facility. Awaiting bed placement. 3. HTN - Restarted home BP medication 02/08. - Norvasc and lisinopril. - vitals Q4H. 4. Arm laceration - clean and dressed. No sign of infection. Ortho consulted, they do not plan to operate at this time. - Added tylenol 1 g Q8H PRN for pain control. Dispo Pt is stable and doing well. D/C to inpatient psych facility.
[2019-02-10] MEDS ORDERED: Acetaminophen 500 MG TAB PO PRN (07:53)
[2019-02-10] MEDS: Amlodipine 10 MG TAB PO SCH (08:52)
[2019-02-10] MEDS: Lisinopril 20 MG TAB PO SCH (08:52)
[2019-02-10] MEDS: Enoxaparin Sodium 40 MG/0.4 ML SYRINGE SC SCH (08:53)
[2019-02-10] MEDS: Oxazepam 10 MG CAP PO SCH ×2 (09:19→20:37)
--- NOTE | 2019-02-10 10:56 | PRG ---
DATE OF SERVICE: 02/10/2019 Mr. Thomas is awake and alert, still having some mild pain in his left forearm. We are still awaiting bed placement at [facility]. Job ID: [id number]
[2019-02-11] MEDS: HYDROcodone/Acetaminophen 5/325 mg Tablet PO PRN ×3 (01:54→14:29)
--- NOTE | 2019-02-11 06:39 | PDOC.FM ---
- Subjective Subjective: Pt doing well. No acute overnight events. Pt c/o about the finger food diet. Accepted to [facility] this morning via doc to doc. - Objective MAR Reviewed: Yes Vital Signs & Weight: Vital Signs (12 hours) Temp Pulse Resp BP Pulse Ox 02/10/19 19:29 98.4 F 100 18 123/85 95 Weight Admit Weight 99.7 kg Weight 99.7 kg Most Recent Monitor Data Heart Rate from ECG 81 NIBP 135/88 NIBP BP-Mean 103 Respiration from ECG 9 SpO2 96 I&O: 02/09/19 02/10/19 02/11/19 06:59 06:59 06:59 Intake Total 1900 1400 Output Total 900 Balance 1900 500 Result Diagrams: 02/10/19 05:25 02/10/19 05:25 Phys Exam - Physical Examination Constitutional: NAD HEENT: PERRLA, moist MMs, sclera anicteric Neck: no nodes, supple, full ROM Respiratory: no wheezing, no rales, no rhonchi, clear to auscultation bilateral Cardiovascular: RRR, no significant murmur, no rub Gastrointestinal: soft, non-tender, no distention, positive bowel sounds Musculoskeletal: no edema, pulses present Neurological: non-focal, moves all 4 limbs Psychiatric: A&O x 3 Skin: no rash, normal turgor, cap refill <2 seconds Dx/Plan (1) Suicide attempt by beta isidro overdose Code(s): T44.7X2A - POISONING BY BETA-ADRENOCPT ANTAGONISTS, SELF-HARM, INIT Status: Acute (2) Suicide and self-inflicted injury Code(s): X83.8XXA - INTENTIONAL SELF-HARM BY OTHER SPECIFIED MEANS, INIT ENCNTR Status: Acute (3) Depression Code(s): F32.9 - MAJOR DEPRESSIVE DISORDER, SINGLE EPISODE, UNSPECIFIED Status : Chronic (4) Hypertension Code(s): I10 - ESSENTIAL (PRIMARY) HYPERTENSION Status: Chronic - Plan Plan: 1. Beta isidro overdose - BP is stable, has never required pressers. - Normal HR - will follow up with poison control for total obs duration, transfer to medical. - Pt's never became hypotensive. Pressures are elevated. restarted home BP meds 02/08. 2. Suicide attempt - not currently suicidal. Cleared Medically 02/07. - [facility] recommending pt be placed in inpatient Psych facility. Awaiting bed placement. 3. HTN - Restarted home BP medication 02/08. - Norvasc and lisinopril. - vitals Q4H. 4. Arm laceration - clean and dressed. No sign of infection. Ortho consulted, they do not plan to operate at this time. - Added tylenol 1 g Q8H PRN for pain control. Dispo Pt is stable and doing well. Accepted to [facility] 02/11/19.
[2019-02-11] MEDS: Amlodipine 10 MG TAB PO SCH (08:14)
[2019-02-11] MEDS: Lisinopril 20 MG TAB PO SCH (08:14)
[2019-02-11] MEDS: Enoxaparin Sodium 40 MG/0.4 ML SYRINGE SC SCH (08:15)
[2019-02-11] MEDS: Oxazepam 10 MG CAP PO SCH (09:56)
[2019-02-11 11:30] VITALS: BP 140/93; TEMP 98.3
--- NOTE | 2019-02-11 11:42 | PRG ---
DATE OF SERVICE: 02/11/2019 Mr. Thomas is sitting quietly in bed, in no distress. He is pleasant and oriented. We have found a bed at [facility] and he will be transferred there shortly to continue ongoing psychiatric care. Job ID: [id number]
--- NOTE | 2019-02-12 09:37 | DIS ---
DATE OF ADMISSION: 02/07/2019 DATE OF DISCHARGE: 02/11/2019 Resident Debbie Flores DO ADMITTING ATTENDING: Inderjit Ferrara MD DISCHARGE ATTENDING: Kirt Hickman MD CONSULTATIONS: 1. Case Management. 2. Orthopedics, Dr. Vera. 3. Pulmonology, Dr. Granados. 4. [facility]. 5. Spiritual Care. PROCEDURE PERFORMED: Laceration repair of left upper extremity forearm from intentional self-harm by the ER physician. Take stitches out in 1 week. DIAGNOSES: 1. Beta-isidro overdose. 2. Suicide attempt. 3. Hypertension. 4. Arm lacerations secondary to intentional harm from suicide attempt. DISCHARGE MEDICATIONS: 1. Tylenol 1000 mg p.o. q.8 hours. 2. Xanax 2 mg p.o. b.i.d. 3. Amlodipine 10 mg p.o. daily. 4. Humulin. 5. Hydrocodone 5 mg p.o. q.6 hours p.r.n. 6. Hydroxyzine 25 mg p.o. p.r.n. 7. Lisinopril 40 mg p.o. daily. 8. Melatonin 3 mg tab p.o. at bedtime. 9. Omeprazole 10 mg p.o. daily. 10. Oxazepam 10 mg p.o. b.i.d. We recommend using this in hospital as patient was withdrawing from the Xanax that he did not receive while in hospital course. 11. Quetiapine 100 mg p.o. at bedtime. 12. Ambien 10 mg p.o. at bedtime. The patient also did not receive Ambien while in hospital. HISTORY OF PRESENT ILLNESS/HOSPITAL COURSE: Mr. Thomas is a 53-year-old male with major depressive disorder and hypertension, came into the emergency department on 02/07, was admitted for a suicide attempt. Two days prior, he had intentionally cut his left upper extremity on his forearm, did not seek treatment at that time, but did seek treatment in the middle of the night on as he tried to overdose on lisinopril and metoprolol. The patient was stable in the ER, did have slightly low blood pressure, was given a central line in case he were to deteriorate and need pressors. The patient's blood pressure remained stable throughout the hospital course and never dropped, have any hypotension. The central line was removed. Poison control was contacted, recommended him to be monitored for at least 24 hours. MR was consulted, who evaluated the patient and recommended inpatient psych facility treatment as they were thinking he is hallucinating and being delusional and need for further diagnostic therapy. The patient was not very agreeable to this plan; however, understood once he had further conversations about his care. DISPOSITION: The patient was stable upon discharge. INSTRUCTIONS: 1. Location: [facility] for inpatient psych therapy. 2. Diet: Regular diet. 3. Activity: As tolerated. 4. Followup: In one week's time for removal of stitches if still in [facility]; Have [facility] remove the stitches of the left upper extremity and follow up with primary care in one week's time after discharge from the hospital. Job ID: [id number] MTDD
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
== END 2019-02-11 14:55 | disposition short-term general hospital (02) | DRG 917 ==
LOC: ERS 19:02 → CCU 02-07 00:10 → T4-A 02-07 16:10
PROVIDERS: ADMIT Family Medicine; ATTEND Family Medicine
PROC: 0HQEXZZ Repair Left Lower Arm Skin, External Approach (ICD-10-PCS; principal; 2019-02-07)
DX: T46.4X1A Poisoning by angiotensin-converting-enzyme inhibitors, accidental (unintentional), initial encounter (principal); R57.1 Hypovolemic shock; S51.812A Laceration without foreign body of left forearm, initial encounter; F31.9 Bipolar disorder, unspecified; I10 Essential (primary) hypertension; T44.7X1A Poisoning by beta-adrenoreceptor antagonists, accidental (unintentional), initial encounter; I95.9 Hypotension, unspecified; F41.9 Anxiety disorder, unspecified; G47.00 Insomnia, unspecified; F12.10 Cannabis abuse, uncomplicated; F41.1 Generalized anxiety disorder; R00.1 Bradycardia, unspecified; X83.8XXA Intentional self-harm by other specified means, initial encounter
CPT/HCPCS: 12005; 36415; 36430; 36556; 51702; 71045; 80048; 80053; 80306; 80307; 81003; 82330; 82803; 83605; 84443; 85025; 85610; 85730; 86850; 86900; 86901; 90471; 90715; 93005; 96360; 96361; 96365; 96375; J0461; J0690; J1610; J1650; J3010; P9016

== ENCOUNTER 2021-09-20 17:40 | Inpatient (IN) | payer SELFPAY ==
[2021-09-20 18:48] LABS: #Lymphocytes 1.4 thou/uL (1.20-3.40); #Monocytes 0.6 thou/uL (0.11-0.59); #Neutrophils 13.5 thou/uL (1.40-6.50); %Basophils 0.1 % (0.0-1.0); %Eosinophils 0.3 % (0.0-10.0); %Monocytes 3.8 % (0.0-10.0); %Neutrophils 86.8 % (42.0-75.0); Hemoglobin 9.9 g/dL (14.0-18.0); Mean Corpuscular Hemoglobin 29.7 pg (27.0-31.0); Mean Platelet Volume 8.4 fL (7.4-10.4); Platelet Count 275 thou/uL (130-400); RBC Distribution Width 11.6 % (11.5-14.5); Red Blood Cell (RBC) Count 3.34 mill/uL (4.70-6.10); White Blood Cell (WBC) Count 15.5 thou/uL (4.8-10.8)
[2021-09-20 18:58] LABS: INR-International Normal Ratio 1.3; Prothrombin Time 16.7 sec (12.0-14.7)
[2021-09-20 18:59] LABS: PTT 33.6 sec (22.9-36.1)
[2021-09-20 19:03] LABS: Acetaminophen Less than 10.0 mcg/mL (10.0-30.0); Alcohol Less than 10 mg/dL (Less than 10); Salicylate Less than 8.0 mg/dL (15.0-30.0)
[2021-09-20 19:04] LABS: ALT (SGPT) 20 U/L (8-55); AST (SGOT) 55 U/L (5-34); Albumin 3.4 g/dL (3.5-5.0); Alkaline Phosphatase 52 U/L (40-110); Anion Gap 23 mmol/L (10-20); BUN (Urea Nitrogen) 53 mg/dL (8.4-25.7); Bilirubin, Total 0.3 mg/dL (0.2-1.2); Calc. Creatinine Clearance 0 mL/min (70-130); Calcium 9.7 mg/dL (7.8-10.44); Carbon Dioxide 14 mmol/L (22-29); Chloride 98 mmol/L (98-107); Estimated GFR 11; Glucose 96 mg/dL (70-105); Potassium 4.6 mmol/L (3.5-5.1); Protein, Total 5.4 g/dL (6.0-8.3); Sodium 130 mmol/L (136-145)
[2021-09-20] MEDS ORDERED: Calcium Chloride 1 GM/10 ML Abboject SYRINGE ONE (19:28)
[2021-09-20] MEDS ORDERED: DOPamine 400 MG/D5W 250 ML 250 ML ONE (20:01)
[2021-09-20] MEDS ORDERED: Naloxone HCl 0.4 mg/ml Vial ONE (20:52)
[2021-09-20] MEDS ORDERED: Naloxone HCl 2 mg/2 ml Syringe ONE (20:52)
[2021-09-20] MEDS ORDERED: Sodium Bicarb 50 MEQ/50 ML Abboject 8.4% SYRINGE ONE (21:06)
[2021-09-20] MEDS ORDERED: NOREPINEPHRINE 8 MG/250 ML-D5W 250 ML ONE (21:08)
[2021-09-20] MEDS ORDERED: Vasopressin 20 UNIT, Admixture Fee 1 EACH in Sodium Chloride 0.9% 50 ML IV SCH (22:15)
[2021-09-20 22:22] LABS: SARS-CoV-2 NAA Rapid Test Not Detected (NotDetected)
[2021-09-20 22:40] LABS: Bilirubin Negative (Negative); Blood, Urine 2+ (Negative); Clarity Clear (Clear); Glucose, Urine (Dipstick) 50 mg/dL (Negative); Ketone, Urine 10 mg/dL (Negative); Leukocyte Negative Leu/uL (Negative); Nitrite Negative (Negative); Protein, Urine (Dipstick) 10 mg/dL (Neg-Trace); RBC/HPF None Seen HPF (0-3); Specific Gravity, Urine 1.007 (1.002-1.036); Squamous Epithelial 0-3 HPF (0-3); Urobilinogen Normal mg/dL (Less than 2); WBC/HPF 0-3 HPF (0-3)
[2021-09-20 22:47] LABS: Amphetamine Not Detected (NotDetected); Barbiturates Screen Not Detected (NotDetected); Benzodiazepine Screen Detected (NotDetected); Cocaine Metabolite Screen Not Detected (NotDetected); Methadone Not Detected (NotDetected); Methamphetamine Not Detected (NotDetected); Opiate Screen Not Detected (NotDetected); Oxycodone Screen Not Detected (NotDetected); Phencyclidine (PCP) Not Detected (NotDetected); THC/Cannabinoid Screen Detected (NotDetected); Tricyclic Screen Detected (NotDetected)
[2021-09-20 22:55] LABS: Bacteria/HPF None Seen HPF (None Seen)
[2021-09-20 23:21] LABS: Anion Gap 23 mmol/L (10-20); BUN (Urea Nitrogen) 51 mg/dL (8.4-25.7); Calc. Creatinine Clearance 0 mL/min (70-130); Calcium 9.4 mg/dL (7.8-10.44); Carbon Dioxide 12 mmol/L (22-29); Chloride 101 mmol/L (98-107); Estimated GFR 11; Glucose 162 mg/dL (70-105); Potassium 4.1 mmol/L (3.5-5.1); Sodium 132 mmol/L (136-145)
[2021-09-20 23:22] LABS: Troponin I 0.016 ng/mL (< 0.028)
[2021-09-20] MEDS ORDERED: HUMULIN R 100 UNITS in Sodium Chloride 0.9% 100 ML IVPB SCH (23:45)
[2021-09-20] MEDS ORDERED: Ondansetron PF 4 MG/2 ML Vial IVP PRN (23:52)
[2021-09-21] MEDS: Phenylephrine 40 MG/NS 250 ML 250 ML IVPB SCH ×4 (00:25→11:13)
[2021-09-21] MEDS: NOREPINEPHRINE 8 MG/250 ML-D5W 250 ML IVPB PRN ×6 (00:25→20:57)
[2021-09-21] MEDS ORDERED: Cefepime 1 GM in Sodium Chloride 0.9% 100 ML IVPB SCH (00:30)
[2021-09-21] MEDS ORDERED: Hydrocortisone Sod Succ/PF 100 mg/2 ml Vial IVP SCH ×2 (00:30→23:45)
[2021-09-21] MEDS ORDERED: Pantoprazole 40 MG VIAL IVP SCH ×2 (00:45→09:00)
[2021-09-21] MEDS ORDERED: Octreotide Acetate 50 MCG/ML AMP SLOW IVP SCH (00:45)
[2021-09-21] MEDS ORDERED: Vancomycin 1 GM in Premix Bag 1 BAG IVPB SCH (00:45)
[2021-09-21] MEDS: DOPamine 400 MG/D5W 250 ML 250 ML IVPB SCH ×3 (00:46→08:13)
[2021-09-21] MEDS ORDERED: Octreotide Acetate 1,250 MCG in Sodium Chloride 0.9% 250 ML 250 ML IVPB SCH (01:00)
[2021-09-21 01:07] LABS: #Lymphocytes 0.7 thou/uL (1.20-3.40); #Monocytes 0.1 thou/uL (0.11-0.59); #Neutrophils 18.6 thou/uL (1.40-6.50); %Basophils 0.1 % (0.0-1.0); %Lymphocytes 3.7 % (21.0-51.0); %Monocytes 0.6 % (0.0-10.0); %Neutrophils 95.6 % (42.0-75.0); Hemoglobin 10.2 g/dL (14.0-18.0); Mean Corpuscular HGB CONC 33.1 g/dL (32.0-36.0); Mean Corpuscular Hemoglobin 29.8 pg (27.0-31.0); Mean Corpuscular Volume 90.1 fL (78.0-98.0); Platelet Count 305 thou/uL (130-400); RBC Distribution Width 11.5 % (11.5-14.5); Red Blood Cell (RBC) Count 3.43 mill/uL (4.70-6.10); White Blood Cell (WBC) Count 19.4 thou/uL (4.8-10.8)
[2021-09-21 01:13] LABS: Actual Bicarbonate (HCO3a) 14.3 mEq/L (22-28); Base Excess (BEa) -11.9 mEq/L (-2.0 to +3.0); CO2 Tension 33.7 mmHg (35.0-45.0); Calcium, Ionized (arterial) 1.27 mmol/L (1.12-1.30); Carboxyhemoglobin (COHb) 0.3 gm% (0.0-3.0); Hemoglobin (Hb) 10.7 g/dL (14.0-18.0); O2 Tension (PaO2), arterial 87.3 mmHg (80.0-100.0); Potassium - ABG Lab 3.94 mmol/L (3.70-5.30)
[2021-09-21 01:14] LABS: ALV-art Gradient 20.305 mmHg (0-20); Puncture Site LINE; pH, Arterial 7.25 (7.35-7.45)
[2021-09-21] MEDS ORDERED: Ondansetron PF 4 MG/2 ML Vial IVP SCH (01:15)
[2021-09-21] MEDS: Sodium Bicarbonate 150 MEQ in Dextrose 5% in Water 1,000 ML IV SCH ×3 (01:16→16:02)
[2021-09-21 01:23] LABS: INR-International Normal Ratio 1.3; Prothrombin Time 16.4 sec (12.0-14.7)
[2021-09-21 01:24] LABS: PTT 29.6 sec (22.9-36.1)
[2021-09-21] MEDS ORDERED: Promethazine HCl 25 MG/ML VIAL IVPB PRN (01:28)
[2021-09-21 01:32] LABS: ALT (SGPT) 21 U/L (8-55); AST (SGOT) 48 U/L (5-34); Albumin 3.2 g/dL (3.5-5.0); Alkaline Phosphatase 54 U/L (40-110); Anion Gap 24 mmol/L (10-20); BUN (Urea Nitrogen) 49 mg/dL (8.4-25.7); Bilirubin, Total 0.2 mg/dL (0.2-1.2); CK (CPK) 1843 U/L (30-200); Calc. Creatinine Clearance 10 mL/min (70-130); Calcium 9.1 mg/dL (7.8-10.44); Carbon Dioxide 12 mmol/L (22-29); Chloride 100 mmol/L (98-107); Estimated GFR 12; Globulin 2.6 g/dL (2.4-3.5); Glucose 239 mg/dL (70-105); Protein, Total 5.8 g/dL (6.0-8.3); Sodium 132 mmol/L (136-145)
[2021-09-21] MEDS ORDERED: Promethazine HCl 12.5 MG in Sodium Chloride 0.9% 50 ML IVPB PRN (01:37)
[2021-09-21 01:49] LABS: Troponin I 0.034 ng/mL (< 0.028)
[2021-09-21] MEDS: HUMULIN R 500 UNITS in Sodium Chloride 0.9% 500 ML IVPB SCH ×2 (01:49→12:25)
[2021-09-21 01:53] LABS: Lactic Acid 1.7 mmol/L (0.5-2.2)
[2021-09-21] MEDS ORDERED: Dextrose 50% Abboject 50 ML SYRINGE SLOW IVP PRN (02:24)
[2021-09-21 02:27] LABS: Phosphorus 3.2 mg/dL (2.3-4.7); Potassium 3.5 mmol/L (3.5-5.1)
[2021-09-21] MEDS ORDERED: Dextrose 10% in Water 1,000 ML IV SCH (02:30)
[2021-09-21] MEDS: Cefepime 1 GM in Sodium Chloride 0.9% 100 ML IVPB SCH (03:52)
[2021-09-21 04:05] LABS: Anion Gap 18 mmol/L (10-20); BUN (Urea Nitrogen) 45 mg/dL (8.4-25.7); Calc. Creatinine Clearance 11 mL/min (70-130); Carbon Dioxide 18 mmol/L (22-29); Chloride 100 mmol/L (98-107); Estimated GFR 13; Glucose 123 mg/dL (70-105); Sodium 133 mmol/L (136-145)
[2021-09-21 04:18] LABS: Hemoglobin 10.6 g/dL (14.0-18.0); Mean Corpuscular HGB CONC 34.7 g/dL (32.0-36.0); Mean Corpuscular Hemoglobin 30.8 pg (27.0-31.0); Mean Corpuscular Volume 88.7 fL (78.0-98.0); Mean Platelet Volume 7.5 fL (7.4-10.4); Platelet Count 322 thou/uL (130-400); RBC Distribution Width 11.3 % (11.5-14.5); Red Blood Cell (RBC) Count 3.43 mill/uL (4.70-6.10); White Blood Cell (WBC) Count 20.2 thou/uL (4.8-10.8)
[2021-09-21 04:19] LABS: Band 7 % (5-11); MDiff Complete? YES; Neutrophil 93 % (42-75); Platelet Morphology Comment Appears Adequate; RBC Morphology Normal
[2021-09-21] MEDS ORDERED: Lactated Ringer's 1,000 ML IV SCH (04:45)
[2021-09-21] MEDS: Potassium Chloride 20 MEQ in Premix Bag 1 BAG IVPB SCH ×2 (04:47→06:26)
[2021-09-21] MEDS ORDERED: Potassium Chloride 20 MEQ TAB PO SCH ×2 (05:00→10:15)
[2021-09-21] MEDS ORDERED: Dextrose 10% in Water 500 ML IV SCH (05:30)
[2021-09-21] MEDS: Hydrocortisone Sod Succ/PF 100 mg/2 ml Vial IVP SCH ×3 (06:14→17:41)
[2021-09-21] MEDS: Ondansetron PF 4 MG/2 ML Vial IVP SCH ×3 (06:16→17:42)
[2021-09-21] MEDS: Pantoprazole 40 MG VIAL IVP SCH ×2 (08:35→20:58)
[2021-09-21] MEDS ORDERED: Heparin 5,000 UNITS/ML VIAL SC SCH (09:00)
[2021-09-21] MEDS ORDERED: Famotidine 20 MG TAB PO SCH (09:00)
[2021-09-21 10:51] LABS: Potassium 3.2 mmol/L (3.5-5.1)
[2021-09-21] MEDS ORDERED: Potassium Chloride 60 MEQ in Sodium Chloride 0.9% 250 ML 250 ML IVPB SCH (11:00)
[2021-09-21 11:20] LABS: Actual Bicarbonate (HCO3a) 25.1 mEq/L (22-28); Base Excess (BEa) 1.7 mEq/L (-2.0 to +3.0); Calcium, Ionized (arterial) 1.08 mmol/L (1.12-1.30); Carboxyhemoglobin (COHb) 0.2 gm% (0.0-3.0); Hemoglobin (Hb) 11.4 g/dL (14.0-18.0); O2 Tension (PaO2), arterial 61.9 mmHg (80.0-100.0); Potassium - ABG Lab 3.18 mmol/L (3.70-5.30); pH, Arterial 7.47 (7.35-7.45)
[2021-09-21 11:21] LABS: Puncture Site Arterial Line
[2021-09-21 12:44] LABS: Anion Gap 15 mmol/L (10-20); BUN (Urea Nitrogen) 32 mg/dL (8.4-25.7); Calc. Creatinine Clearance 34 mL/min (70-130); Calcium 8.6 mg/dL (7.8-10.44); Carbon Dioxide 24 mmol/L (22-29); Chloride 90 mmol/L (98-107); Estimated GFR 19; Glucose 199 mg/dL (70-105); Potassium 3.3 mmol/L (3.5-5.1); Sodium 126 mmol/L (136-145)
[2021-09-21 18:25] LABS: Potassium 3.3 mmol/L (3.5-5.1)
[2021-09-21 18:42] LABS: Glucose 46 mg/dL (70-105)
[2021-09-22] MEDS: Hydrocortisone Sod Succ/PF 100 mg/2 ml Vial IVP SCH ×4 (00:21→17:13)
[2021-09-22] MEDS: Sodium Bicarbonate 150 MEQ in Dextrose 5% in Water 1,000 ML IV SCH ×3 (02:16→14:35)
[2021-09-22] MEDS: Ondansetron PF 4 MG/2 ML Vial IVP SCH ×2 (02:17→10:38)
[2021-09-22] MEDS: Cefepime 1 GM in Sodium Chloride 0.9% 100 ML IVPB SCH ×2 (02:21→17:37)
[2021-09-22 02:40] LABS: Anion Gap 15 mmol/L (10-20); BUN (Urea Nitrogen) 23 mg/dL (8.4-25.7); Calc. Creatinine Clearance 46 mL/min (70-130); Calcium 8.4 mg/dL (7.8-10.44); Carbon Dioxide 28 mmol/L (22-29); Chloride 88 mmol/L (98-107); Estimated GFR 27; Glucose 195 mg/dL (70-105); Sodium 127 mmol/L (136-145)
[2021-09-22 04:39] LABS: #Lymphocytes 1.2 thou/uL (1.20-3.40); #Monocytes 0.7 thou/uL (0.11-0.59); %Eosinophils 0.2 % (0.0-10.0); %Lymphocytes 6.1 % (21.0-51.0); %Monocytes 3.9 % (0.0-10.0); %Neutrophils 89.9 % (42.0-75.0); Hemoglobin 10.5 g/dL (14.0-18.0); Mean Corpuscular HGB CONC 33.9 g/dL (32.0-36.0); Mean Corpuscular Volume 88.4 fL (78.0-98.0); Mean Platelet Volume 7.7 fL (7.4-10.4); Platelet Count 324 thou/uL (130-400); RBC Distribution Width 11.5 % (11.5-14.5); Red Blood Cell (RBC) Count 3.51 mill/uL (4.70-6.10)
[2021-09-22 08:58] LABS: ALT (SGPT) 21 U/L (8-55); AST (SGOT) 36 U/L (5-34); Albumin 3.2 g/dL (3.5-5.0); Alkaline Phosphatase 60 U/L (40-110); Bilirubin, Direct 0.2 mg/dL (0.1-0.3); Bilirubin, Total 0.5 mg/dL (0.2-1.2); Protein, Total 6.1 g/dL (6.0-8.3)
[2021-09-22] MEDS: Pantoprazole 40 MG VIAL IVP SCH ×2 (10:37→21:34)
[2021-09-22] MEDS: Acetaminophen 325 MG TAB PO PRN (14:35)
[2021-09-22] MEDS ORDERED: hydrOXYzine 25 MG TAB PO SCH (20:19)
[2021-09-23] MEDS: Hydrocortisone Sod Succ/PF 100 mg/2 ml Vial IVP SCH ×4 (01:40→20:18)
[2021-09-23] MEDS: Cefepime 1 GM in Sodium Chloride 0.9% 100 ML IVPB SCH ×2 (03:59→14:30)
[2021-09-23 06:09] LABS: #Lymphocytes 1.3 thou/uL (1.20-3.40); #Monocytes 0.5 thou/uL (0.11-0.59); #Neutrophils 10.8 thou/uL (1.40-6.50); %Basophils 0.1 % (0.0-1.0); %Eosinophils 0.1 % (0.0-10.0); %Lymphocytes 10.2 % (21.0-51.0); %Monocytes 3.7 % (0.0-10.0); %Neutrophils 85.9 % (42.0-75.0); Hemoglobin 11.4 g/dL (14.0-18.0); Mean Corpuscular HGB CONC 33.8 g/dL (32.0-36.0); Mean Corpuscular Hemoglobin 29.9 pg (27.0-31.0); Mean Corpuscular Volume 88.5 fL (78.0-98.0); Mean Platelet Volume 7.4 fL (7.4-10.4); Platelet Count 324 thou/uL (130-400); RBC Distribution Width 11.6 % (11.5-14.5); Red Blood Cell (RBC) Count 3.82 mill/uL (4.70-6.10); White Blood Cell (WBC) Count 12.6 thou/uL (4.8-10.8)
[2021-09-23 06:30] LABS: Anion Gap 15 mmol/L (10-20); BUN (Urea Nitrogen) 27 mg/dL (8.4-25.7); Calc. Creatinine Clearance 60 mL/min (70-130); Calcium 9.2 mg/dL (7.8-10.44); Carbon Dioxide 33 mmol/L (22-29); Chloride 92 mmol/L (98-107); Estimated GFR 37; Glucose 125 mg/dL (70-105); Sodium 136 mmol/L (136-145)
[2021-09-23] MEDS: Pantoprazole 40 MG VIAL IVP SCH ×2 (07:58→08:53)
[2021-09-23] MEDS: Lactated Ringer's 1,000 ML IV SCH (12:46)
[2021-09-23] MEDS ORDERED: Diazepam 5 MG TAB PO PRN (13:55)
[2021-09-23] MEDS: Acetaminophen 325 MG TAB PO PRN (14:29)
[2021-09-24] MEDS: Lactated Ringer's 1,000 ML IV SCH ×3 (01:48→21:20)
[2021-09-24] MEDS: Cefepime 1 GM in Sodium Chloride 0.9% 100 ML IVPB SCH ×2 (03:07→15:16)
[2021-09-24 06:16] LABS: #Lymphocytes 1.9 thou/uL (1.20-3.40); #Monocytes 0.6 thou/uL (0.11-0.59); #Neutrophils 9.6 thou/uL (1.40-6.50); %Basophils 0.1 % (0.0-1.0); %Eosinophils 0.2 % (0.0-10.0); %Lymphocytes 15.4 % (21.0-51.0); %Monocytes 5.2 % (0.0-10.0); %Neutrophils 79.2 % (42.0-75.0); Hemoglobin 12.2 g/dL (14.0-18.0); Mean Corpuscular HGB CONC 34.1 g/dL (32.0-36.0); Mean Corpuscular Hemoglobin 30.5 pg (27.0-31.0); Mean Corpuscular Volume 89.5 fL (78.0-98.0); Mean Platelet Volume 6.8 fL (7.4-10.4); Platelet Count 383 thou/uL (130-400); RBC Distribution Width 11.5 % (11.5-14.5); White Blood Cell (WBC) Count 12.1 thou/uL (4.8-10.8)
[2021-09-24 06:36] LABS: ALT (SGPT) 18 U/L (8-55); AST (SGOT) 16 U/L (5-34); Albumin 3.6 g/dL (3.5-5.0); Alkaline Phosphatase 67 U/L (40-110); Anion Gap 15 mmol/L (10-20); BUN (Urea Nitrogen) 32 mg/dL (8.4-25.7); Bilirubin, Total 0.4 mg/dL (0.2-1.2); Calc. Creatinine Clearance 70 mL/min (70-130); Calcium 9.2 mg/dL (7.8-10.44); Carbon Dioxide 31 mmol/L (22-29); Chloride 96 mmol/L (98-107); Estimated GFR 44; Globulin 3.3 g/dL (2.4-3.5); Glucose 122 mg/dL (70-105); Magnesium 1.9 mg/dL (1.6-2.6); Potassium 3.6 mmol/L (3.5-5.1); Protein, Total 6.9 g/dL (6.0-8.3); Sodium 138 mmol/L (136-145)
[2021-09-24] MEDS: Hydrocortisone Sod Succ/PF 100 mg/2 ml Vial IVP SCH (08:30)
[2021-09-24] MEDS: Gabapentin 300 MG CAP PO SCH ×2 (08:30→10:09)
[2021-09-24] MEDS: Pantoprazole 40 MG VIAL IVP SCH (08:31)
[2021-09-24] MEDS ORDERED: Lorazepam 2 MG/ML VIAL SLOW IVP SCH (09:15)
[2021-09-24] MEDS ORDERED: Midazolam HCl 2 mg/2 ml Vial SLOW IVP SCH (09:30)
[2021-09-24] MEDS ORDERED: OLANZapine 10 MG VIAL IM SCH (14:00)
[2021-09-25] MEDS: Lactated Ringer's 1,000 ML IV SCH ×3 (02:55→20:24)
[2021-09-25 08:00] LABS: Calcium 9.3 mg/dL (7.8-10.44); Chloride 103 mmol/L (98-107); Sodium 142 mmol/L (136-145)
[2021-09-25 08:01] LABS: Glucose 103 mg/dL (70-105)
[2021-09-25 08:02] LABS: Anion Gap 15 mmol/L (10-20); Carbon Dioxide 28 mmol/L (22-29)
[2021-09-25 08:04] LABS: Calc. Creatinine Clearance 91 mL/min (70-130); Estimated GFR 60
[2021-09-25 08:05] LABS: BUN (Urea Nitrogen) 30 mg/dL (8.4-25.7)
[2021-09-25] MEDS: Gabapentin 300 MG CAP PO SCH (08:36)
[2021-09-25] MEDS: Pantoprazole 40 MG VIAL IVP SCH (08:37)
[2021-09-25] MEDS ORDERED: Hydrocortisone Sod Succ/PF 100 mg/2 ml Vial IVP SCH (09:00)
[2021-09-25] MEDS ORDERED: Gabapentin 300 MG CAP PO PRN (11:24)
[2021-09-25] MEDS: Amoxicillin/Potassium Clav 875 MG TAB PO SCH (20:23)
[2021-09-26] MEDS: Lactated Ringer's 1,000 ML IV SCH ×2 (03:29→12:44)
[2021-09-26 06:52] LABS: Anion Gap 15 mmol/L (10-20); BUN (Urea Nitrogen) 27 mg/dL (8.4-25.7); Calc. Creatinine Clearance 99 mL/min (70-130); Calcium 9.1 mg/dL (7.8-10.44); Carbon Dioxide 27 mmol/L (22-29); Chloride 104 mmol/L (98-107); Estimated GFR 67; Glucose 105 mg/dL (70-105); Potassium 3.6 mmol/L (3.5-5.1); Sodium 142 mmol/L (136-145)
[2021-09-26] MEDS: Pantoprazole 40 MG VIAL IVP SCH (08:33)
[2021-09-26] MEDS: Amoxicillin/Potassium Clav 875 MG TAB PO SCH ×2 (08:33→19:17)
[2021-09-26] MEDS ORDERED: Tamsulosin HCl 0.4 MG CAP PO SCH (10:00)
[2021-09-26] MEDS ORDERED: Amlodipine 5 MG TAB PO SCH (10:00)
[2021-09-26] MEDS ORDERED: Polyethylene Glycol 3350 17 GM Packet PO PRN (11:15)
[2021-09-27] MEDS: Lactated Ringer's 1,000 ML IV SCH (00:56)
[2021-09-27] MEDS: Acetaminophen 325 MG TAB PO PRN ×2 (02:31→21:14)
[2021-09-27 06:41] LABS: #Eosinphils 0.2 thou/uL (0.0-0.7); #Lymphocytes 2.4 thou/uL (1.20-3.40); #Monocytes 0.7 thou/uL (0.11-0.59); #Neutrophils 10.1 thou/uL (1.40-6.50); %Basophils 0.2 % (0.0-1.0); %Eosinophils 1.2 % (0.0-10.0); %Lymphocytes 18.1 % (21.0-51.0); %Monocytes 5.3 % (0.0-10.0); %Neutrophils 75.3 % (42.0-75.0); Mean Corpuscular HGB CONC 32.3 g/dL (32.0-36.0); Mean Corpuscular Hemoglobin 29.4 pg (27.0-31.0); Mean Platelet Volume 6.8 fL (7.4-10.4); Platelet Count 274 thou/uL (130-400); RBC Distribution Width 11.9 % (11.5-14.5); Red Blood Cell (RBC) Count 4.08 mill/uL (4.70-6.10); White Blood Cell (WBC) Count 13.4 thou/uL (4.8-10.8)
[2021-09-27 07:01] LABS: Anion Gap 14 mmol/L (10-20); BUN (Urea Nitrogen) 27 mg/dL (8.4-25.7); Calc. Creatinine Clearance 97 mL/min (70-130); Calcium 8.9 mg/dL (7.8-10.44); Carbon Dioxide 25 mmol/L (22-29); Chloride 107 mmol/L (98-107); Estimated GFR 65; Glucose 164 mg/dL (70-105); Potassium 3.8 mmol/L (3.5-5.1); Sodium 142 mmol/L (136-145)
[2021-09-27] MEDS ORDERED: Amlodipine 5 MG TAB PO SCH (09:00)
[2021-09-27] MEDS: Amoxicillin/Potassium Clav 875 MG TAB PO SCH ×2 (09:53→21:14)
[2021-09-27] MEDS: Tamsulosin HCl 0.4 MG CAP PO SCH (09:53)
[2021-09-27] MEDS: Pantoprazole 40 MG VIAL IVP SCH (09:54)
[2021-09-27] MEDS ORDERED: OLANZapine 10 MG VIAL IM SCH (13:00)
[2021-09-27] MEDS: Sodium Chloride 0.9% 1,000 ML IV SCH (23:49)
[2021-09-28] MEDS ORDERED: Labetalol HCl 100 MG/20 ML VIAL SLOW IVP PRN (03:34)
[2021-09-28] MEDS: Tamsulosin HCl 0.4 MG CAP PO SCH (08:31)
[2021-09-28] MEDS: Amlodipine 10 MG TAB PO SCH (08:31)
[2021-09-28] MEDS: Amoxicillin/Potassium Clav 875 MG TAB PO SCH ×2 (08:31→19:48)
[2021-09-28] MEDS: Lisinopril 20 MG TAB PO SCH (08:31)
[2021-09-28] MEDS: Pantoprazole 40 MG VIAL IVP SCH (08:32)
[2021-09-28] MEDS: Sodium Chloride 0.9% 1,000 ML IV SCH (08:34)
[2021-09-29] MEDS: Finasteride 5 MG TAB PO SCH (12:34)
[2021-09-29] MEDS: Amoxicillin/Potassium Clav 875 MG TAB PO SCH ×2 (12:34→20:38)
[2021-09-29] MEDS: Tamsulosin HCl 0.4 MG CAP PO SCH (12:34)
[2021-09-29] MEDS: Amlodipine 10 MG TAB PO SCH (12:34)
[2021-09-29] MEDS: Lisinopril 20 MG TAB PO SCH (12:44)
[2021-09-29 12:45] LABS: #Eosinphils 0.1 thou/uL (0.0-0.7); #Lymphocytes 1.7 thou/uL (1.20-3.40); #Monocytes 0.6 thou/uL (0.11-0.59); #Neutrophils 7.1 thou/uL (1.40-6.50); %Basophils 0.3 % (0.0-1.0); %Eosinophils 1.3 % (0.0-10.0); %Lymphocytes 17.6 % (21.0-51.0); %Monocytes 6.1 % (0.0-10.0); %Neutrophils 74.6 % (42.0-75.0); Mean Corpuscular HGB CONC 33.3 g/dL (32.0-36.0); Mean Corpuscular Volume 90.3 fL (78.0-98.0); Mean Platelet Volume 7.5 fL (7.4-10.4); Platelet Count 222 thou/uL (130-400); RBC Distribution Width 12.2 % (11.5-14.5); White Blood Cell (WBC) Count 9.5 thou/uL (4.8-10.8)
[2021-09-29 14:46] LABS: Anion Gap 17 mmol/L (10-20); BUN (Urea Nitrogen) 23 mg/dL (8.4-25.7); Calc. Creatinine Clearance 108 mL/min (70-130); Calcium 9.3 mg/dL (7.8-10.44); Carbon Dioxide 21 mmol/L (22-29); Chloride 115 mmol/L (98-107); Estimated GFR 88; Glucose 97 mg/dL (70-105); Potassium 3.8 mmol/L (3.5-5.1); Sodium 149 mmol/L (136-145)
[2021-09-29] MEDS: Dextrose 5% in Water 1,000 ML IV SCH (16:05)
[2021-09-29] MEDS: hydrALAZINE 25 MG TAB PO SCH (20:38)
[2021-09-30] MEDS: Dextrose 5% in Water 1,000 ML IV SCH ×2 (05:13→18:09)
[2021-09-30 07:08] LABS: Anion Gap 15 mmol/L (10-20); BUN (Urea Nitrogen) 25 mg/dL (8.4-25.7); Calc. Creatinine Clearance 95 mL/min (70-130); Calcium 9.1 mg/dL (7.8-10.44); Carbon Dioxide 22 mmol/L (22-29); Chloride 115 mmol/L (98-107); Estimated GFR 76; Glucose 121 mg/dL (70-105); Potassium 3.7 mmol/L (3.5-5.1); Sodium 148 mmol/L (136-145)
[2021-09-30] MEDS: hydrALAZINE 25 MG TAB PO SCH ×3 (08:23→21:42)
[2021-09-30] MEDS: Finasteride 5 MG TAB PO SCH (08:23)
[2021-09-30] MEDS: Amoxicillin/Potassium Clav 875 MG TAB PO SCH (08:23)
[2021-09-30] MEDS: Amlodipine 10 MG TAB PO SCH (08:23)
[2021-09-30] MEDS: Tamsulosin HCl 0.4 MG CAP PO SCH (08:24)
[2021-09-30] MEDS ORDERED: Diazepam 10 MG/2 ML SYRINGE IVP SCH (23:45)
[2021-10-01 06:46] LABS: Anion Gap 14 mmol/L (10-20); BUN (Urea Nitrogen) 25 mg/dL (8.4-25.7); Calc. Creatinine Clearance 93 mL/min (70-130); Calcium 9.2 mg/dL (7.8-10.44); Carbon Dioxide 23 mmol/L (22-29); Chloride 113 mmol/L (98-107); Estimated GFR 78; Glucose 116 mg/dL (70-105); Potassium 3.9 mmol/L (3.5-5.1); Sodium 146 mmol/L (136-145)
[2021-10-01] MEDS: Dextrose 5% in Water 1,000 ML IV SCH ×2 (09:16→21:03)
[2021-10-01] MEDS: hydrALAZINE 25 MG TAB PO SCH ×3 (10:07→20:26)
[2021-10-01] MEDS: Amlodipine 10 MG TAB PO SCH (10:07)
[2021-10-01] MEDS: Finasteride 5 MG TAB PO SCH (10:07)
[2021-10-01] MEDS: Tamsulosin HCl 0.4 MG CAP PO SCH (10:08)
[2021-10-02 06:35] LABS: Anion Gap 17 mmol/L (10-20); BUN (Urea Nitrogen) 22 mg/dL (8.4-25.7); Calc. Creatinine Clearance 105 mL/min (70-130); Calcium 8.9 mg/dL (7.8-10.44); Carbon Dioxide 18 mmol/L (22-29); Chloride 107 mmol/L (98-107); Estimated GFR 90; Glucose 105 mg/dL (70-105); Sodium 138 mmol/L (136-145)
[2021-10-02] MEDS: D5 1/2 NS w/10 mEq KCl 1,000 ML/1,000 ML BAG IV SCH ×2 (09:59→20:55)
[2021-10-02] MEDS: Amlodipine 10 MG TAB PO SCH (10:21)
[2021-10-02] MEDS: Tamsulosin HCl 0.4 MG CAP PO SCH (10:51)
[2021-10-02] MEDS: hydrALAZINE 25 MG TAB PO SCH ×3 (10:51→20:55)
[2021-10-02] MEDS: Finasteride 5 MG TAB PO SCH (10:51)
[2021-10-03 06:22] LABS: Anion Gap 11 mmol/L (10-20); BUN (Urea Nitrogen) 14 mg/dL (8.4-25.7); Calc. Creatinine Clearance 118 mL/min (70-130); Calcium 8.9 mg/dL (7.8-10.44); Carbon Dioxide 23 mmol/L (22-29); Chloride 109 mmol/L (98-107); Estimated GFR 102; Glucose 108 mg/dL (70-105); Potassium 3.3 mmol/L (3.5-5.1); Sodium 140 mmol/L (136-145)
[2021-10-03] MEDS ORDERED: Potassium Chloride 20 MEQ TAB PO SCH (08:45)
[2021-10-03] MEDS: hydrALAZINE 25 MG TAB PO SCH ×3 (08:48→21:03)
[2021-10-03] MEDS: D5 1/2 NS w/10 mEq KCl 1,000 ML/1,000 ML BAG IV SCH (08:48)
[2021-10-03] MEDS: Amlodipine 10 MG TAB PO SCH (08:48)
[2021-10-03] MEDS: Finasteride 5 MG TAB PO SCH (08:48)
[2021-10-03] MEDS: Tamsulosin HCl 0.4 MG CAP PO SCH (08:49)
[2021-10-03] MEDS ORDERED: D5 1/2 NS w/40 mEq KCL 1,000 ML IV SCH (10:45)
[2021-10-03] MEDS ORDERED: Electrolyte Replacement Protocol 1 EACH FS SCH (10:45)
[2021-10-03] MEDS: MULTIVITAMINS IV SCH (12:12)
[2021-10-03] MEDS: KCL IV SCH (12:12)
[2021-10-03] MEDS: 1/2 NS W IV SCH (12:12)
[2021-10-03] MEDS: D5 IV SCH (12:12)
[2021-10-03] MEDS: Heparin 5,000 UNITS/ML VIAL SC SCH (20:58)
[2021-10-04 05:42] LABS: #Basophils 0.1 thou/uL (0.0-0.2); #Eosinphils 0.2 thou/uL (0.0-0.7); #Lymphocytes 2.4 thou/uL (1.20-3.40); #Monocytes 0.7 thou/uL (0.11-0.59); #Neutrophils 7.1 thou/uL (1.40-6.50); %Basophils 0.7 % (0.0-1.0); %Eosinophils 2.1 % (0.0-10.0); %Monocytes 6.2 % (0.0-10.0); Hemoglobin 10.6 g/dL (14.0-18.0); Mean Corpuscular Hemoglobin 29.7 pg (27.0-31.0); Mean Corpuscular Volume 90.2 fL (78.0-98.0); Mean Platelet Volume 8.9 fL (7.4-10.4); Platelet Count 252 thou/uL (130-400); RBC Distribution Width 12.3 % (11.5-14.5); Red Blood Cell (RBC) Count 3.55 mill/uL (4.70-6.10); White Blood Cell (WBC) Count 10.5 thou/uL (4.8-10.8)
[2021-10-04 06:27] LABS: Anion Gap 12 mmol/L (10-20); BUN (Urea Nitrogen) 13 mg/dL (8.4-25.7); Calc. Creatinine Clearance 124 mL/min (70-130); Calcium 8.7 mg/dL (7.8-10.44); Carbon Dioxide 23 mmol/L (22-29); Chloride 108 mmol/L (98-107); Estimated GFR 103; Glucose 100 mg/dL (70-105); Magnesium 2.1 mg/dL (1.6-2.6); Phosphorus 2.5 mg/dL (2.3-4.7); Potassium 3.2 mmol/L (3.5-5.1); Sodium 140 mmol/L (136-145)
[2021-10-04] MEDS ORDERED: Potassium Chloride 20 MEQ TAB PO SCH (08:30)
[2021-10-04] MEDS: Amlodipine 10 MG TAB PO SCH (08:31)
[2021-10-04] MEDS: Finasteride 5 MG TAB PO SCH (08:31)
[2021-10-04] MEDS: Heparin 5,000 UNITS/ML VIAL SC SCH ×2 (08:31→22:08)
[2021-10-04] MEDS: Tamsulosin HCl 0.4 MG CAP PO SCH (08:32)
[2021-10-04] MEDS: hydrALAZINE 25 MG TAB PO SCH (08:32)
[2021-10-04] MEDS: KCL IV SCH (09:29)
[2021-10-04] MEDS: 1/2 NS W IV SCH (09:29)
[2021-10-04] MEDS: D5 IV SCH (09:29)
[2021-10-04] MEDS: MULTIVITAMINS IV SCH (09:29)
[2021-10-04] MEDS ORDERED: Diazepam 5 MG TAB PO SCH (12:45)
[2021-10-04] MEDS ORDERED: Diazepam 2 MG TAB PO SCH (12:45)
[2021-10-04] MEDS: Gabapentin 100 MG CAP PO SCH ×2 (13:57→22:07)
[2021-10-04] MEDS: Propranolol HCl 20 MG TAB PO SCH ×2 (13:57→22:07)
[2021-10-05] MEDS: Diazepam 5 MG TAB PO SCH (09:44)
[2021-10-05] MEDS: Finasteride 5 MG TAB PO SCH (09:44)
[2021-10-05] MEDS: Amlodipine 10 MG TAB PO SCH (09:44)
[2021-10-05] MEDS: Gabapentin 100 MG CAP PO SCH ×3 (09:45→22:09)
[2021-10-05] MEDS: Heparin 5,000 UNITS/ML VIAL SC SCH ×2 (09:45→22:09)
[2021-10-05] MEDS: Propranolol HCl 20 MG TAB PO SCH ×3 (09:46→22:09)
[2021-10-05] MEDS: Tamsulosin HCl 0.4 MG CAP PO SCH (09:46)
[2021-10-05] MEDS: MULTIVITAMINS IV SCH ×3 (10:42→23:57)
[2021-10-05] MEDS: 1/2 NS W IV SCH ×3 (10:42→23:57)
[2021-10-05] MEDS: D5 IV SCH ×3 (10:42→23:57)
[2021-10-05] MEDS: KCL IV SCH ×3 (10:42→23:57)
[2021-10-05] MEDS ORDERED: cloNIDine 0.1mg/24 Hour PATCH TD SCH (13:30)
[2021-10-05 17:26] LABS: Potassium 3.9 mmol/L (3.5-5.1)
[2021-10-05] MEDS: Amlodipine 5 MG TAB PO SCH (22:09)
[2021-10-06 06:01] LABS: Anion Gap 15 mmol/L (10-20); BUN (Urea Nitrogen) 19 mg/dL (8.4-25.7); Calc. Creatinine Clearance 98 mL/min (70-130); Calcium 9.3 mg/dL (7.8-10.44); Carbon Dioxide 21 mmol/L (22-29); Chloride 104 mmol/L (98-107); Estimated GFR 84; Glucose 106 mg/dL (70-105); Potassium 4.2 mmol/L (3.5-5.1); Sodium 136 mmol/L (136-145)
[2021-10-06] MEDS ORDERED: Midazolam HCl 2 mg/2 ml Vial SLOW IVP SCH ×2 (09:45→10:00)
[2021-10-06] MEDS ORDERED: Ziprasidone 20 MG VIAL IM SCH (10:00)
[2021-10-06] MEDS ORDERED: Haloperidol Lactate 5 MG/ML VIAL SLOW IVP SCH (10:00)
[2021-10-06] MEDS: Amlodipine 5 MG TAB PO SCH ×2 (10:25→20:31)
[2021-10-06] MEDS: Diazepam 5 MG TAB PO SCH (10:25)
[2021-10-06] MEDS: Finasteride 5 MG TAB PO SCH (10:25)
[2021-10-06] MEDS: Gabapentin 100 MG CAP PO SCH ×3 (10:25→20:32)
[2021-10-06] MEDS: Propranolol HCl 20 MG TAB PO SCH ×3 (10:26→20:31)
[2021-10-06] MEDS: Tamsulosin HCl 0.4 MG CAP PO SCH (10:26)
[2021-10-06] MEDS: Heparin 5,000 UNITS/ML VIAL SC SCH ×2 (10:26→20:32)
[2021-10-06] MEDS: 1/2 NS W IV SCH (12:17)
[2021-10-06] MEDS: KCL IV SCH (12:17)
[2021-10-06] MEDS: D5 IV SCH (12:17)
[2021-10-06] MEDS: MULTIVITAMINS IV SCH (12:17)
[2021-10-07] MEDS: Amlodipine 5 MG TAB PO SCH ×2 (08:56→21:54)
[2021-10-07] MEDS: Propranolol HCl 20 MG TAB PO SCH ×3 (08:57→21:54)
[2021-10-07] MEDS: 1/2 NS W IV SCH ×2 (09:02→17:04)
[2021-10-07] MEDS: KCL IV SCH ×2 (09:02→17:04)
[2021-10-07] MEDS: D5 IV SCH ×2 (09:02→17:04)
[2021-10-07] MEDS: MULTIVITAMINS IV SCH ×2 (09:02→17:04)
[2021-10-07] MEDS: Finasteride 5 MG TAB PO SCH (09:04)
[2021-10-07] MEDS: Diazepam 5 MG TAB PO SCH (09:04)
[2021-10-07] MEDS: Heparin 5,000 UNITS/ML VIAL SC SCH ×2 (09:04→21:55)
[2021-10-07] MEDS: Tamsulosin HCl 0.4 MG CAP PO SCH (09:04)
[2021-10-07] MEDS: Gabapentin 100 MG CAP PO SCH ×4 (09:04→21:54)
[2021-10-08] MEDS: 1/2 NS W IV SCH (08:25)
[2021-10-08] MEDS: D5 IV SCH (08:25)
[2021-10-08] MEDS: KCL IV SCH (08:25)
[2021-10-08] MEDS: MULTIVITAMINS IV SCH (08:25)
[2021-10-08] MEDS: Propranolol HCl 20 MG TAB PO SCH ×3 (08:27→21:10)
[2021-10-08] MEDS: Finasteride 5 MG TAB PO SCH (08:35)
[2021-10-08] MEDS: Tamsulosin HCl 0.4 MG CAP PO SCH (08:35)
[2021-10-08] MEDS: Gabapentin 100 MG CAP PO SCH ×3 (08:35→21:10)
[2021-10-08] MEDS: Diazepam 5 MG TAB PO SCH (08:35)
[2021-10-08] MEDS: Heparin 5,000 UNITS/ML VIAL SC SCH ×2 (08:35→21:10)
[2021-10-08] MEDS: Amlodipine 5 MG TAB PO SCH ×2 (08:35→21:10)
[2021-10-08] MEDS: hydrALAZINE 20 MG/ML VIAL SLOW IVP PRN ×2 (13:12→21:04)
[2021-10-08] MEDS ORDERED: Sterile Water 10 ML ONE (23:21)
[2021-10-08] MEDS: Sterile Water 10 ML VIAL FS PRN (23:26)
[2021-10-08] MEDS ORDERED: Ziprasidone 20 MG VIAL IM SCH (23:30)
[2021-10-09] MEDS: Acetaminophen 325 MG TAB PO PRN (00:43)
[2021-10-09] MEDS: hydrALAZINE 20 MG/ML VIAL SLOW IVP PRN ×2 (01:05→05:29)
[2021-10-09] MEDS: D5 1/2 NS w/40 mEq KCL 1,000 ML IV SCH ×2 (01:06→20:43)
[2021-10-09] MEDS ORDERED: Metoprolol Tartrate 5 MG/5 ML VIAL IVP PRN (05:33)
[2021-10-09] MEDS ORDERED: Labetalol HCl 100 MG/20 ML VIAL SLOW IVP SCH (06:00)
[2021-10-09 07:53] LABS: #Lymphocytes 1.4 thou/uL (1.20-3.40); #Monocytes 0.7 thou/uL (0.11-0.59); #Neutrophils 5.9 thou/uL (1.40-6.50); %Basophils 0.6 % (0.0-1.0); %Eosinophils 0.6 % (0.0-10.0); %Lymphocytes 17.7 % (21.0-51.0); %Monocytes 8.2 % (0.0-10.0); %Neutrophils 72.9 % (42.0-75.0); Hemoglobin 12.1 g/dL (14.0-18.0); Mean Corpuscular HGB CONC 32.7 g/dL (32.0-36.0); Mean Corpuscular Hemoglobin 29.9 pg (27.0-31.0); Mean Corpuscular Volume 91.3 fL (78.0-98.0); Mean Platelet Volume 9.9 fL (7.4-10.4); Platelet Count 309 thou/uL (130-400); RBC Distribution Width 13.3 % (11.5-14.5); Red Blood Cell (RBC) Count 4.05 mill/uL (4.70-6.10); White Blood Cell (WBC) Count 8.1 thou/uL (4.8-10.8)
[2021-10-09 08:12] LABS: Anion Gap 16 mmol/L (10-20); BUN (Urea Nitrogen) 11 mg/dL (8.4-25.7); Calc. Creatinine Clearance 114 mL/min (70-130); Calcium 9.3 mg/dL (7.8-10.44); Carbon Dioxide 20 mmol/L (22-29); Chloride 103 mmol/L (98-107); Estimated GFR 101; Glucose 137 mg/dL (70-105); Magnesium 1.9 mg/dL (1.6-2.6); Potassium 3.8 mmol/L (3.5-5.1); Sodium 135 mmol/L (136-145)
[2021-10-09] MEDS: Heparin 5,000 UNITS/ML VIAL SC SCH ×2 (10:12→20:44)
[2021-10-09] MEDS: Diazepam 5 MG TAB PO SCH (10:12)
[2021-10-09] MEDS: Amlodipine 5 MG TAB PO SCH ×2 (10:12→20:44)
[2021-10-09] MEDS: Tamsulosin HCl 0.4 MG CAP PO SCH (10:13)
[2021-10-09] MEDS: Gabapentin 100 MG CAP PO SCH ×3 (10:13→20:44)
[2021-10-09] MEDS: Finasteride 5 MG TAB PO SCH (10:13)
[2021-10-09] MEDS: Propranolol HCl 20 MG TAB PO SCH ×3 (10:13→20:44)
[2021-10-09] MEDS ORDERED: Magnesium 2 GM/50 ML(in water) 2 GM in Premix Bag 1 BAG IVPB SCH (10:15)
[2021-10-09] MEDS ORDERED: cloNIDine 0.1mg/24 Hour PATCH TD SCH (12:00)
[2021-10-10] MEDS ORDERED: Ziprasidone 20 MG VIAL IM SCH (00:30)
[2021-10-10] MEDS ORDERED: Lorazepam (BATCHED) 2 MG/ML SYR SLOW IVP SCH (00:30)
[2021-10-10] MEDS: Sterile Water 10 ML VIAL FS PRN (00:33)
[2021-10-10] MEDS: hydrALAZINE 20 MG/ML VIAL SLOW IVP PRN ×2 (02:18→19:48)
[2021-10-10] MEDS: Diazepam 5 MG TAB PO SCH (08:11)
[2021-10-10] MEDS: Amlodipine 5 MG TAB PO SCH ×2 (08:11→20:06)
[2021-10-10] MEDS: Finasteride 5 MG TAB PO SCH (08:12)
[2021-10-10] MEDS: Gabapentin 100 MG CAP PO SCH ×3 (08:12→20:07)
[2021-10-10] MEDS: Propranolol HCl 20 MG TAB PO SCH ×3 (08:12→20:08)
[2021-10-10] MEDS: Heparin 5,000 UNITS/ML VIAL SC SCH ×2 (08:12→20:07)
[2021-10-10] MEDS: Tamsulosin HCl 0.4 MG CAP PO SCH (08:13)
[2021-10-10 12:06] LABS: Anion Gap 14 mmol/L (10-20); BUN (Urea Nitrogen) 11 mg/dL (8.4-25.7); Calc. Creatinine Clearance 115 mL/min (70-130); Calcium 9.3 mg/dL (7.8-10.44); Carbon Dioxide 21 mmol/L (22-29); Chloride 106 mmol/L (98-107); Estimated GFR 101; Glucose 113 mg/dL (70-105); Potassium 4.2 mmol/L (3.5-5.1); Sodium 137 mmol/L (136-145)
[2021-10-10 12:13] LABS: #Eosinphils 0.1 thou/uL (0.0-0.7); #Lymphocytes 1.8 thou/uL (1.20-3.40); #Monocytes 0.5 thou/uL (0.11-0.59); #Neutrophils 4.8 thou/uL (1.40-6.50); %Basophils 0.4 % (0.0-1.0); %Eosinophils 1.2 % (0.0-10.0); %Lymphocytes 24.9 % (21.0-51.0); %Monocytes 6.9 % (0.0-10.0); %Neutrophils 66.5 % (42.0-75.0); Hemoglobin 12.5 g/dL (14.0-18.0); Mean Corpuscular HGB CONC 33.3 g/dL (32.0-36.0); Mean Corpuscular Hemoglobin 30.3 pg (27.0-31.0); Mean Corpuscular Volume 91.2 fL (78.0-98.0); Mean Platelet Volume 8.4 fL (7.4-10.4); Platelet Count 368 thou/uL (130-400); RBC Distribution Width 13.2 % (11.5-14.5); Red Blood Cell (RBC) Count 4.14 mill/uL (4.70-6.10); White Blood Cell (WBC) Count 7.2 thou/uL (4.8-10.8)
[2021-10-10] MEDS: Haloperidol Lactate 5 MG/ML VIAL SLOW IVP SCH ×2 (13:16→21:40)
[2021-10-10] MEDS: D5 1/2 NS w/40 mEq KCL 1,000 ML IV SCH (18:12)
[2021-10-10 19:10] LABS: Bilirubin Negative (Negative); Blood, Urine Negative (Negative); Clarity Clear (Clear); Glucose, Urine (Dipstick) 150 mg/dL (Negative); Ketone, Urine Negative (Negative); Leukocyte 250 Leu/uL (Negative); Nitrite Negative (Negative); Protein, Urine (Dipstick) 10 mg/dL (Neg-Trace); RBC/HPF 0-3 HPF (0-3); Specific Gravity, Urine 1.021 (1.002-1.036); Squamous Epithelial None Seen HPF (0-3); Urobilinogen Normal mg/dL (Less than 2); pH, Urine 5.5 (5.0-9.0)
[2021-10-10 19:11] LABS: Bacteria/HPF 1+ HPF (None Seen); Urine Culture Reflex Yes Yes
[2021-10-11] MEDS: Haloperidol Lactate 5 MG/ML VIAL SLOW IVP SCH ×3 (05:03→21:28)
[2021-10-11 06:15] LABS: #Eosinphils 0.1 thou/uL (0.0-0.7); #Lymphocytes 1.8 thou/uL (1.20-3.40); #Monocytes 0.5 thou/uL (0.11-0.59); #Neutrophils 3.7 thou/uL (1.40-6.50); %Basophils 0.8 % (0.0-1.0); %Eosinophils 1.6 % (0.0-10.0); %Lymphocytes 29.5 % (21.0-51.0); %Monocytes 8.5 % (0.0-10.0); %Neutrophils 59.7 % (42.0-75.0); Hemoglobin 11.3 g/dL (14.0-18.0); Mean Corpuscular HGB CONC 33.7 g/dL (32.0-36.0); Mean Corpuscular Hemoglobin 30.9 pg (27.0-31.0); Mean Corpuscular Volume 91.6 fL (78.0-98.0); Mean Platelet Volume 8.2 fL (7.4-10.4); Platelet Count 334 thou/uL (130-400); RBC Distribution Width 13.2 % (11.5-14.5); Red Blood Cell (RBC) Count 3.65 mill/uL (4.70-6.10); White Blood Cell (WBC) Count 6.2 thou/uL (4.8-10.8)
[2021-10-11 06:32] LABS: Anion Gap 13 mmol/L (10-20); BUN (Urea Nitrogen) 10 mg/dL (8.4-25.7); Calc. Creatinine Clearance 111 mL/min (70-130); Calcium 8.9 mg/dL (7.8-10.44); Carbon Dioxide 22 mmol/L (22-29); Chloride 104 mmol/L (98-107); Estimated GFR 100; Glucose 109 mg/dL (70-105); Potassium 3.8 mmol/L (3.5-5.1); Sodium 135 mmol/L (136-145)
[2021-10-11] MEDS: cefTRIAXone\\ROCEPHIN 1 GM in Sodium Chloride 0.9% 100 ML IVPB SCH (09:32)
[2021-10-11] MEDS: Propranolol HCl 20 MG TAB PO SCH ×3 (09:33→21:27)
[2021-10-11] MEDS: Diazepam 5 MG TAB PO SCH (09:33)
[2021-10-11] MEDS: Heparin 5,000 UNITS/ML VIAL SC SCH ×2 (09:33→21:27)
[2021-10-11] MEDS: Finasteride 5 MG TAB PO SCH (09:33)
[2021-10-11] MEDS: Amlodipine 5 MG TAB PO SCH ×2 (09:33→21:26)
[2021-10-11] MEDS: Gabapentin 100 MG CAP PO SCH ×3 (09:33→21:28)
[2021-10-11] MEDS: Tamsulosin HCl 0.4 MG CAP PO SCH (09:34)
[2021-10-11] MEDS ORDERED: Tamsulosin HCl 0.4 MG CAP PO SCH (09:45)
[2021-10-11] MEDS ORDERED: Megestrol Acetate 800 MG/20 ML UDCUP PO SCH (10:00)
[2021-10-11] MEDS: D5 1/2 NS w/40 mEq KCL 1,000 ML IV SCH (15:58)
[2021-10-12] MEDS: Haloperidol Lactate 5 MG/ML VIAL SLOW IVP SCH ×3 (05:31→21:33)
[2021-10-12] MEDS: cefTRIAXone\\ROCEPHIN 1 GM in Sodium Chloride 0.9% 100 ML IVPB SCH (08:34)
[2021-10-12] MEDS: Amlodipine 5 MG TAB PO SCH ×2 (08:39→21:32)
[2021-10-12] MEDS: Gabapentin 100 MG CAP PO SCH ×3 (08:41→21:32)
[2021-10-12] MEDS: Finasteride 5 MG TAB PO SCH (08:41)
[2021-10-12] MEDS: Heparin 5,000 UNITS/ML VIAL SC SCH (08:41)
[2021-10-12] MEDS: Pantoprazole 40 MG VIAL IVP SCH (08:42)
[2021-10-12] MEDS: Megestrol Acetate 800 MG/20 ML UDCUP PO SCH (08:42)
[2021-10-12] MEDS: Propranolol HCl 20 MG TAB PO SCH ×3 (08:43→21:33)
[2021-10-12] MEDS: Tamsulosin HCl 0.4 MG CAP PO SCH (08:43)
[2021-10-12] MEDS: D5 1/2 NS w/40 mEq KCL 1,000 ML IV SCH (08:43)
[2021-10-12] MEDS ORDERED: cloNIDine 0.1mg/24 Hour PATCH TD SCH (09:00)
[2021-10-13] MEDS: Haloperidol Lactate 5 MG/ML VIAL SLOW IVP SCH ×3 (06:03→21:04)
[2021-10-13] MEDS: D5 1/2 NS w/40 mEq KCL 1,000 ML IV SCH (06:17)
[2021-10-13 07:03] LABS: #Basophils 0.1 thou/uL (0.0-0.2); #Eosinphils 0.2 thou/uL (0.0-0.7); #Lymphocytes 1.8 thou/uL (1.20-3.40); #Monocytes 0.5 thou/uL (0.11-0.59); #Neutrophils 4.2 thou/uL (1.40-6.50); %Basophils 1.1 % (0.0-1.0); %Eosinophils 2.3 % (0.0-10.0); %Lymphocytes 26.7 % (21.0-51.0); %Monocytes 7.9 % (0.0-10.0); %Neutrophils 62.1 % (42.0-75.0); Hemoglobin 12.3 g/dL (14.0-18.0); Mean Corpuscular HGB CONC 32.3 g/dL (32.0-36.0); Mean Corpuscular Hemoglobin 30.1 pg (27.0-31.0); Mean Corpuscular Volume 93.1 fL (78.0-98.0); Mean Platelet Volume 8.7 fL (7.4-10.4); Platelet Count 362 thou/uL (130-400); RBC Distribution Width 13.1 % (11.5-14.5); White Blood Cell (WBC) Count 6.8 thou/uL (4.8-10.8)
[2021-10-13 07:24] LABS: Anion Gap 14 mmol/L (10-20); BUN (Urea Nitrogen) 9 mg/dL (8.4-25.7); Calc. Creatinine Clearance 105 mL/min (70-130); Calcium 8.9 mg/dL (7.8-10.44); Carbon Dioxide 23 mmol/L (22-29); Chloride 105 mmol/L (98-107); Estimated GFR 95; Glucose 100 mg/dL (70-105); Potassium 4.1 mmol/L (3.5-5.1); Sodium 138 mmol/L (136-145)
[2021-10-13] MEDS: Megestrol Acetate 800 MG/20 ML UDCUP PO SCH ×2 (08:35→08:40)
[2021-10-13] MEDS: Enoxaparin Sodium 40 MG/0.4 ML SYRINGE SC SCH (08:36)
[2021-10-13] MEDS: Pantoprazole 40 MG VIAL IVP SCH (08:36)
[2021-10-13] MEDS: Propranolol HCl 20 MG TAB PO SCH ×3 (08:36→21:04)
[2021-10-13] MEDS: Gabapentin 100 MG CAP PO SCH (08:36)
[2021-10-13] MEDS: Tamsulosin HCl 0.4 MG CAP PO SCH (08:37)
[2021-10-13] MEDS: Amlodipine 5 MG TAB PO SCH ×2 (08:37→21:04)
[2021-10-13] MEDS: Finasteride 5 MG TAB PO SCH (08:37)
[2021-10-13] MEDS: cefTRIAXone\\ROCEPHIN 1 GM in Sodium Chloride 0.9% 100 ML IVPB SCH (08:37)
[2021-10-13] MEDS ORDERED: Ibuprofen 200 MG TAB PO SCH (23:00)
[2021-10-13] MEDS ORDERED: Haloperidol Lactate 5 MG/ML VIAL SLOW IVP SCH (23:00)
[2021-10-14] MEDS: D5 1/2 NS w/40 mEq KCL 1,000 ML IV SCH ×2 (02:11→21:15)
[2021-10-14] MEDS: Melatonin 3 MG TAB PO PRN (02:11)
[2021-10-14] MEDS: Haloperidol Lactate 5 MG/ML VIAL SLOW IVP SCH (06:26)
[2021-10-14] MEDS: Propranolol HCl 20 MG TAB PO SCH ×3 (09:26→21:15)
[2021-10-14] MEDS: cefTRIAXone\\ROCEPHIN 1 GM in Sodium Chloride 0.9% 100 ML IVPB SCH (09:26)
[2021-10-14] MEDS: Enoxaparin Sodium 40 MG/0.4 ML SYRINGE SC SCH (09:27)
[2021-10-14] MEDS: Amlodipine 5 MG TAB PO SCH ×2 (09:27→21:16)
[2021-10-14] MEDS: Finasteride 5 MG TAB PO SCH (09:27)
[2021-10-14] MEDS: Megestrol Acetate 800 MG/20 ML UDCUP PO SCH (09:27)
[2021-10-14] MEDS: Tamsulosin HCl 0.4 MG CAP PO SCH (09:27)
[2021-10-14] MEDS: FLUoxetine HCl 20 MG CAP PO SCH (09:28)
[2021-10-14] MEDS: Pantoprazole 40 MG VIAL IVP SCH (09:28)
[2021-10-14] MEDS: Haloperidol Decanoate 50 MG/ML VIAL IM SCH ×2 (12:02→17:45)
[2021-10-14] MEDS ORDERED: Ziprasidone 20 MG CAP PO SCH (14:15)
[2021-10-15] MEDS: Acetaminophen 325 MG TAB PO PRN
[2021-10-15] MEDS: Melatonin 3 MG TAB PO PRN
[2021-10-15] MEDS ORDERED: hydrOXYzine Pamoate 25 mg Capsule PO SCH (00:45)
[2021-10-15] MEDS: Ibuprofen 200 MG TAB PO PRN (00:55)
[2021-10-15] MEDS ORDERED: Ziprasidone 20 MG CAP PO SCH (08:00)
[2021-10-15] MEDS: Amlodipine 5 MG TAB PO SCH ×2 (08:57→20:31)
[2021-10-15] MEDS: Finasteride 5 MG TAB PO SCH (08:57)
[2021-10-15] MEDS: cefTRIAXone\\ROCEPHIN 1 GM in Sodium Chloride 0.9% 100 ML IVPB SCH (08:57)
[2021-10-15] MEDS: Megestrol Acetate 800 MG/20 ML UDCUP PO SCH (08:57)
[2021-10-15] MEDS: Tamsulosin HCl 0.4 MG CAP PO SCH (08:57)
[2021-10-15] MEDS: Pantoprazole 40 MG VIAL IVP SCH (08:58)
[2021-10-15] MEDS: FLUoxetine HCl 20 MG CAP PO SCH (08:58)
[2021-10-15] MEDS: Propranolol HCl 20 MG TAB PO SCH ×3 (08:58→20:31)
[2021-10-15] MEDS: Enoxaparin Sodium 40 MG/0.4 ML SYRINGE SC SCH (08:58)
[2021-10-16] MEDS ORDERED: Loperamide HCl 2 MG CAP PO PRN ×2 (04:49)
[2021-10-16] MEDS ORDERED: cloNIDine 0.1mg/24 Hour PATCH TD SCH (09:00)
[2021-10-16] MEDS: Tamsulosin HCl 0.4 MG CAP PO SCH (09:01)
[2021-10-16] MEDS: FLUoxetine HCl 20 MG CAP PO SCH (09:02)
[2021-10-16] MEDS: Finasteride 5 MG TAB PO SCH (09:02)
[2021-10-16] MEDS: Amlodipine 5 MG TAB PO SCH ×2 (09:02→19:52)
[2021-10-16] MEDS: Propranolol HCl 20 MG TAB PO SCH ×3 (09:02→19:52)
[2021-10-16] MEDS: Enoxaparin Sodium 40 MG/0.4 ML SYRINGE SC SCH (09:02)
[2021-10-16] MEDS: Megestrol Acetate 800 MG/20 ML UDCUP PO SCH (09:02)
[2021-10-16] MEDS: Acetaminophen 325 MG TAB PO PRN (14:28)
[2021-10-16] MEDS: Ibuprofen 200 MG TAB PO PRN (14:32)
[2021-10-17] MEDS: Ibuprofen 200 MG TAB PO PRN ×2 (00:24→21:50)
[2021-10-17] MEDS: Finasteride 5 MG TAB PO SCH (08:32)
[2021-10-17] MEDS: Tamsulosin HCl 0.4 MG CAP PO SCH (08:32)
[2021-10-17] MEDS: Thiamine 100 MG TAB PO SCH (08:32)
[2021-10-17] MEDS: FLUoxetine HCl 20 MG CAP PO SCH (08:32)
[2021-10-17] MEDS: Propranolol HCl 20 MG TAB PO SCH ×3 (08:32→20:27)
[2021-10-17] MEDS: Enoxaparin Sodium 40 MG/0.4 ML SYRINGE SC SCH (08:32)
[2021-10-17] MEDS: Amlodipine 5 MG TAB PO SCH ×2 (08:32→20:27)
[2021-10-17] MEDS: Multivitamin W/ Minerals 1 TAB PO SCH (08:32)
[2021-10-17] MEDS: Megestrol Acetate 800 MG/20 ML UDCUP PO SCH (08:33)
[2021-10-18] MEDS: Tamsulosin HCl 0.4 MG CAP PO SCH (08:35)
[2021-10-18] MEDS: Enoxaparin Sodium 40 MG/0.4 ML SYRINGE SC SCH (08:35)
[2021-10-18] MEDS: Megestrol Acetate 800 MG/20 ML UDCUP PO SCH (08:35)
[2021-10-18] MEDS: Multivitamin W/ Minerals 1 TAB PO SCH (08:35)
[2021-10-18] MEDS: FLUoxetine HCl 20 MG CAP PO SCH (08:35)
[2021-10-18] MEDS: Finasteride 5 MG TAB PO SCH (08:35)
[2021-10-18] MEDS: Amlodipine 5 MG TAB PO SCH ×2 (08:35→19:29)
[2021-10-18] MEDS: Propranolol HCl 20 MG TAB PO SCH ×3 (08:36→19:29)
[2021-10-18] MEDS: Thiamine 100 MG TAB PO SCH (08:36)
[2021-10-18] MEDS: Ibuprofen 200 MG TAB PO PRN (19:28)
[2021-10-19] MEDS: Ibuprofen 200 MG TAB PO PRN ×2 (01:06→11:01)
[2021-10-19 08:19] VITALS: BP 146/93; TEMP 98.6
[2021-10-19] MEDS: Enoxaparin Sodium 40 MG/0.4 ML SYRINGE SC SCH (08:20)
[2021-10-19] MEDS: Tamsulosin HCl 0.4 MG CAP PO SCH (08:20)
[2021-10-19] MEDS: Megestrol Acetate 800 MG/20 ML UDCUP PO SCH (08:20)
[2021-10-19] MEDS: FLUoxetine HCl 20 MG CAP PO SCH (08:20)
[2021-10-19] MEDS: Finasteride 5 MG TAB PO SCH (08:20)
[2021-10-19] MEDS: Amlodipine 5 MG TAB PO SCH (08:20)
[2021-10-19] MEDS: Propranolol HCl 20 MG TAB PO SCH (08:20)
[2021-10-19] MEDS: Thiamine 100 MG TAB PO SCH (08:21)
[2021-10-19] MEDS: Multivitamin W/ Minerals 1 TAB PO SCH (08:21)
[2021-10-19 11:35] VITALS: BMI 27.3
== END 2021-10-19 12:31 | disposition short-term general hospital (02) | DRG 917 ==
LOC: ERS 17:40 → CCU 22:30 → T4-A 09-22 14:26
PROVIDERS: ADMIT Internal Medicine; ATTEND Internal Medicine
PROC: 3E033XZ Introduction of Vasopressor into Peripheral Vein, Percutaneous Approach (ICD-10-PCS; principal; 2021-09-20)
DX: T46.1X2A Poisoning by calcium-channel blockers, intentional self-harm, initial encounter (principal); G92.8 Other toxic encephalopathy; R57.8 Other shock; E87.2 Acidosis; N17.9 Acute kidney failure, unspecified; K92.0 Hematemesis; F11.20 Opioid dependence, uncomplicated; N18.5 Chronic kidney disease, stage 5; I12.0 Hypertensive chronic kidney disease with stage 5 chronic kidney disease or end stage renal disease; I31.3 Pericardial effusion (noninflammatory); E87.1 Hypo-osmolality and hyponatremia; F33.3 Major depressive disorder, recurrent, severe with psychotic symptoms; T46.4X2A Poisoning by angiotensin-converting-enzyme inhibitors, intentional self-harm, initial encounter; I95.2 Hypotension due to drugs; Z20.822 Contact with and (suspected) exposure to COVID-19; F41.9 Anxiety disorder, unspecified; F12.10 Cannabis abuse, uncomplicated; D63.1 Anemia in chronic kidney disease; G89.29 Other chronic pain; F10.20 Alcohol dependence, uncomplicated; E87.6 Hypokalemia; S92.912A Unspecified fracture of left toe(s), initial encounter for closed fracture; E11.22 Type 2 diabetes mellitus with diabetic chronic kidney disease; W19.XXXA Unspecified fall, initial encounter; N40.1 Benign prostatic hyperplasia with lower urinary tract symptoms; R33.8 Other retention of urine; E87.5 Hyperkalemia; G93.89 Other specified disorders of brain; Z79.899 Other long term (current) drug therapy; Z79.4 Long term (current) use of insulin; Z78.1 Physical restraint status
CPT/HCPCS: 36415; 36416; 36556; 51702; 70450; 71045; 72125; 72170; 80048; 80053; 80076; 80306; 80307; 81001; 81003; 81015; 82550; 82805; 83605; 83735; 83880; 84100; 84132; 84443; 84484; 85025; 85610; 85730; 86850; 86900; 86901; 87040; 87086; 93005; 93010; 93306; 95816; 95819; 95957; 96365; 96366; 96368; 96374; 96375; C9113; J0360; J0692; J0696; J1265; J1610; J1630; J1631; J1644; J1650; J1720; J1815; J2060; J2250; J2310; J2354; J2358; J2405; J2550; J3360; J3370; J3475; J3480; J3486; J3490; J7030; J7050; J7060; J7070; J7120; J7999; L4386; Q0177; U0002; U0003; U0005